=== PATIENT | male | born 1945 | race Caucasian/White ===

== ENCOUNTER 2016-08-24 06:36 | Inpatient (IN) | payer OTHER ==
[2016-08-24 06:53] VITALS: BMI 23.7
--- NOTE | 2016-08-24 07:02 | PDOC ---
History of Present Illness - History of Present Illness Initial Comments: 08/24/16 06:54 This 71-year-old man with metastatic adenocarcinoma pancreas and recurrent pleural effusion presents with increasing shortness of breath over the last 24 hours. The patient is visiting the local area from [place].. Pancreatic carcinoma was diagnosed in November of last year. Since then, he has received chemotherapy and radiation therapy. In late June of this year he developed pleural effusion which was drained. It was found to contain metastatic pancreatic cancer free cells. Since then, he has had 3 drainage procedures for recurrent pleural effusion, most recently on August 21 when he was visiting family in [facility]. Patient states that 2 L were drained off at that time. He did well until yesterday when shortness of breath he was mild, becoming progressively more severe overnight. He has had no fever/chills, increase in his cough or chest pain. Past medical history notable for hypertension/GERD. No history of bleeding disorders; <Lori Perez - Last Filed: 08/24/16 07:11> <Lianna Daniels - Last Filed: 08/24/16 11:36> - General Chief Complaint: Shortness of Breath Stated Complaint: SOB Time Seen by Provider: 08/24/16 06:39 Past History <Lori Perez - Last Filed: 08/24/16 07:11> <Lianna Daniels - Last Filed: 08/24/16 11:36> - Past Medical History Allergies/Adverse Reactions: Allergies Allergy/AdvReac Type Severity Reaction Status Date / Time amlodipine besylate AdvReac Verified 08/24/16 06:53 [From [facility]] Home Medications: Ambulatory Orders Diphenoxylate HCl/Atropine [Lomotil Tablet] 1 each PO QID PRN 08/24/16 Quinapril HCl [Accupril] 10 mg PO DAILY 08/24/16 Tramadol HCl 50 mg PO QID 08/24/16 Review of Systems - Review of Systems Able to Perform ROS?: Yes Comments:: 12 point review of systems is negative except for what is noted in the history of present illness <Lori Perez - Last Filed: 08/24/16 07:11> *Physical Exam - Physical Exam Comments: GENERAL: Adult male, mildly short of breath but speaking in full sentences HEAD: Normal with no signs of trauma. EYES: PERRLA, EOMI, sclera anicteric, conjunctiva clear. ENT: Ears normal, nares patent, oropharynx clear without exudates. Dry mucous membranes. NECK: Normal range of motion, supple without lymphadenopathy, JVD, or masses. LUNGS: Decreased breath sounds bilaterally assisted up. HEART:Regular rate and rhythm, normal S1 and S2 without murmur, rub or gallop. ABDOMEN:.normal bowel sounds No guarding,tenderness or rebound.No masses No distention. EXTREMITIES: Normal range of motion, no edema. No clubbing or cyanosis. No erythema, or tenderness. NEUROLOGICAL: Cranial nerves II through XII grossly intact. Normal speech. No focal neurologic deficits MUSCULOSKELETAL: Back non-tender to palpation, no CVA tenderness SKIN: Warm, Dry, normal turgor, no rashes or lesions noted. <Lori Perez - Last Filed: 08/24/16 07:11> - Vital Signs Last Vital Signs Temp Pulse Resp BP Pulse Ox 97.5 F L 100 H 30 H 138/80 95 08/24/16 06:41 08/24/16 07:30 08/24/16 07:30 08/24/16 07:30 08/24/16 07:30 <Lianna Daniels - Last Filed: 08/24/16 11:36> ED Treatment Course - LABORATORY CBC & Chemistry Diagram: 08/24/16 07:29 08/24/16 07:29 - ADDITIONAL ORDERS Additional order review: Laboratory Results 08/24/16 08/24/16 08/24/16 07:35 07:29 07:29 INR 1.08 Sodium 132 L Potassium 4.1 Chloride 102 Carbon Dioxide 23 Anion Gap 7 L BUN 16 Creatinine 0.8 Creat Clearance w eGFR > 60 Random Glucose 132 H Calcium 8.4 Total Bilirubin 0.8 AST 35 ALT 31 Alkaline Phosphatase 68 Creatine Kinase 73 Total Protein 6.3 L Albumin 2.8 L 08/24/16 07:29 RBC 4.33 MCV 92.0 MCHC 33.5 RDW 14.0 MPV 7.2 L Neutrophils % Y Lymphocytes % Y - RADIOLOGY Radiology Studies Ordered: Category Date Time Status CHEST CTA [CT] Stat CT Scan 08/24/16 09:33 Ordered <Lianna Daniels - Last Filed: 08/24/16 11:36> Progress Note - Progress Note Progress Note: This 71-year-old man with metastatic pancreatic adenocarcinoma and recurrent pleural effusion presents with progressive shortness of breath. He has been receiving therapeutic thoracentesis over the last 6 weeks, most recently 4 days ago. The patient is visiting family here (resides in [place]). He is scheduled to return home to [place] tomorrow. CBC/INR/chemistry profile/cardiac enzymes ordered Oxygen therapy 3 L/minute via nasal cannula started. Chest x-ray: PA and lateral ordered. Case signed out to incoming physician at end of shift <Lori Perez - Last Filed: 08/24/16 07:11> Medical Decision Making - Medical Decision Making 08/24/16 10:05 assumed care of pt at 7 am, awaiting cxr. CXR with pleural effusions bilaterally, atelectasis left base. concern for PE as pt saturating 89% on room air, only moderate effusion. cTA ordered to r/o PE. will likley transfer to [facility] as pt will require pigtail for frequent recurrent malignant effusions. d/w Dr. Bhakta , will see pt. will transfer to [facility]. 08/24/16 11:35 ct positive for PE right upper branch pulm artery. heparin started. Dr bhakta informed, saw pt in ed. and Dr kenney informed update as well. transfer to [facility] telemetry <Lianna Daniels - Last Filed: 08/24/16 11:36> *DC/Admit/Observation/Transfer <Lori Perez - Last Filed: 08/24/16 07:11> - Discharge Dispostion Admit: Yes <Lianna Daniels - Last Filed: 08/24/16 11:36> Diagnosis at time of Disposition: Pleural effusion, Pancreatic cancer, Pulmonary embolism - Discharge Dispostion Condition at time of disposition: Good
[2016-08-24 08:28] LABS: MCH 30.8 pg (25.7-33.7); MCHC 33.5 g/dl (32.0-35.9); MEAN PLT VOLUME 7.2 fl (7.5-11.1); PLATELET COUNT 299 K/MM3 (134-434); WHITE BLOOD COUNT 14.3 K/mm3 (4.0-10.8)
[2016-08-24 08:40] LABS: INR 1.08 (0.82-1.09); PROTHROMBIN TIME (PATIENT) 12.1 SEC (10.2-13.0)
[2016-08-24 08:45] LABS: ALBUMIN 2.8 g/dl (3.5-5.0); ALK PHOS 68 U/L (32-92); ANION GAP 7 (8-16); BILIRUBIN,TOTAL 0.8 mg/dl (0.2-1.0); CALCIUM 8.4 mg/dl (8.4-10.2); CO2 23 mmol/L (22-28); CREATININE 0.8 mg/dl (0.6-1.3); GLUCOSE,RANDOM 132 mg/dl (74-106); SGOT/AST 35 U/L (10-42); SGPT/ALT 31 U/L (10-40); TOT PROT 6.3 g/dl (6.4-8.3)
[2016-08-24 10:23] LABS: TROPONIN I (DFP) 0.1 ng/ml (0.03-0.50)
[2016-08-24] MEDS ORDERED: HEPARIN NA (PORCINE) 5,000 UNITS/ML 1ML VIAL IVPUSH PRN ×7 (11:09→16:43)
[2016-08-24] MEDS: HEPARIN INFUSION - 500 ML IVPB SCH ×4 (11:27→18:30)
[2016-08-24] MEDS ORDERED: HEPARIN INFUSION - 500 ML IVPB SCH (14:15)
--- NOTE | 2016-08-24 16:00 | PN ---
Teaching Attending Note Name of Resident: Alejandro Baez ATTENDING PHYSICIAN STATEMENT I saw and evaluated the patient. I reviewed the resident's note and discussed the case with the resident. I agree with the resident's findings and plan as documented. SUBJECTIVE: 71 M, known metastatic adenocarcinoma of the pancreas to the lungs. Recurrent pleural effusion that has been drained x 4. Recent flight from [place] on August 15. Presented to [facility] ER with increasing SOB. CTA -> Right PE / bilateral pleural effusions. No previous personal / family history of VTE. No fever or chills. Now seen on Telemetry at [facility]. He is awake and alert on 50% VM. He denies overt CP. Breathing does seem a little better at this time. Intake & Output 08/21/16 08/22/16 08/23/16 08/24/16 23:59 23:59 23:59 23:59 Weight 175 lb Last Vital Signs Temp Pulse Resp BP Pulse Ox 98.6 F 119 H 22 180/92 96 08/24/16 14:53 08/24/16 14:53 08/24/16 14:53 08/24/16 14:53 08/24/16 13:09 Active Medications Albuterol/Ipratropium (Duoneb -) 1 amp NEB Q4H PRN PRN Reason: SHORTNESS OF BREATH Heparin Sodium (Porcine) (Heparin -) 1,000 unit IVPUSH PRN PRN PRN Reason: Heparin Heparin Sodium (Porcine) (Heparin -) 5,000 unit IVPUSH PRN PRN PRN Reason: Heparin Heparin Sodium/Dextrose (Heparin Infusion -) 500 mls @ 20 mls/hr IVPB TITR NEDA ; 1,000 UNITS/HR PRN Reason: Protocol - Physical Exam Comments: Constitutional: Yes: Awake and alert, Mildly tachypneic at rest Eyes: Yes: Conjunctiva Clear, EOM Intact HENT: Yes: Atraumatic, Normocephalic Neck: Yes: Supple, Trachea Midline Cardiovascular: Yes: Regular Rate and Rhythm Respiratory: Yes: Bilateral rhonchi, (-) wheeze Gastrointestinal: Yes: Normal Bowel Sounds, Soft ...Rectal Exam: Yes: Deferred Musculoskeletal: Yes: Back Pain Neurological: Yes: Alert, Oriented ...Motor Strength: WNL Psychiatric: Yes: Alert Laboratory Results 07/13/17 07/13/17 07/13/17 07:35 07:29 07:29 INR 1.08 Sodium 132 L Potassium 4.1 Chloride 102 Carbon Dioxide 23 Anion Gap 7 L BUN 16 Creatinine 0.8 Creat Clearance w eGFR > 60 Random Glucose 132 H Calcium 8.4 Total Bilirubin 0.8 AST 35 ALT 31 Alkaline Phosphatase 68 Creatine Kinase 73 Total Protein 6.3 L Albumin 2.8 L 08/24/16 07:29 RBC 4.33 MCV 92.0 MCHC 33.5 RDW 14.0 MPV 7.2 L Neutrophils % Y Lymphocytes % Y IMP: Acute Right PE Metastatic pancreatic adenocarcinoma (to the lungs) Malignant pleural effusion Above history PLAN: Change to Lovenox O2 via VM (?) PluerX placement Will follow Thank you. Dr Luis
--- NOTE | 2016-08-24 17:33 | EKG ---
Test Reason : Blood Pressure : / mmHG Vent. Rate : 101 BPM Atrial Rate : 101 BPM P-R Int : 126 ms QRS Dur : 076 ms QT Int : 352 ms P-R-T Axes : 043 038 044 degrees QTc Int : 456 ms SINUS TACHYCARDIA POSSIBLE LEFT ATRIAL ENLARGEMENT NO PREVIOUS ECGS AVAILABLE Confirmed by MD HU, RENARD ([id number]) on 08/24/2016 5:33:21 PM Referred By: PIA SUGGS Confirmed By:RENARD LUI MD
--- NOTE | 2016-08-24 17:39 | CONSULT ---
Consultation: REQUESTING PROVIDER: CONSULT REQUEST: We have been asked to medically evaluate this patient for worsening dyspnea on exertion/suspected PE. HISTORY OF PRESENT ILLNESS: 71 year old man w/ pmh HTN, HLD, pancreatic Ca and chronic pleural effusions requiring drainage (4x) presents as transfer from [place] with increasing SOB and dyspnea on exertion of one days duration w/ suspicion for possible PE. At baseline, patient has metastatic pancreatic CA to his lung pleura, resulting in chronic pleural effusions that cause significant respiratory symptoms, including exertional dyspnea and SOB, and have required several drainage procedures (4x), most recently three days prior to admission at [facility] in [place]. Yesterday, pt noted a significant increased SOB and exertional dyspnea when walking around the city with his family which seemed to come on suddenly and persisted throughout the evening. His SOB was exacerbating whenever he stood-up and walked around. Pt was in this state when he presented to [facility]. At baseline, pt endorses a chronic cough and fluctuating exercise tolerance, opthopnea and SOB due to pleural effusions, but experience significant relief of symptoms with taps. He denies fever, chills, hemoptysis, palpitations, N/V, abdominal pain, changes in bowel/bladder habits, LE edema, and joint pain. Pt is currently visiting from [place]. No prior VTE or family Hx of thrombophilia or pulmonary disease. He endorse some mild fatigue at baseline and decreased PO intake. He does not require any respiratory support at home and is fully functional in all ADLs. Patient was diagnosed with pancreatic cancer in . Has received 6 rounds of chemo since then and 7 weeks of RT, as recent as May. He received his most recent round of chemo in July. 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 Never smoked or drug use. REVIEW OF SYSTEMS: CONSTITUTIONAL: Absent: fever, chills, diaphoresis, generalized weakness, malaise HEENT: Absent: rhinorrhea, nasal congestion, throat pain, throat swelling, ear pain, eye pain, visual changes CARDIOVASCULAR: Absent: chest pain, syncope, palpitations, irregular heart rate, lightheadedness , peripheral edema RESPIRATORY: Chronic cough, SOB, Dyspnea on exertion Absent: orthopnea, wheezing, hemoptysis GASTROINTESTINAL: Absent: abdominal pain, abdominal distension, nausea, vomiting, diarrhea, constipation, melena, hematochezia GENITOURINARY: Absent: dysuria, frequency, urgency, hesitancy, hematuria MUSCULOSKELETAL: Absent: myalgia, arthralgia, joint swelling, back pain, neck pain SKIN: Absent: rash, itching, pallor HEMATOLOGIC/IMMUNOLOGIC: Absent: easy bleeding, easy bruising, lymphadenopathy NEUROLOGIC: Absent: headache, focal weakness or paresthesias, dizziness, PHYSICAL EXAMINATION Vital Signs - 24 hr 08/24/16 08/24/16 08/24/16 13:09 14:53 15:55 Temperature 98.6 F Pulse Rate 119 H 111 H Respiratory 22 Rate Blood Pressure 180/92 O2 Sat by Pulse 96 91 L Oximetry (%) GENERAL: Awake, alert, and fully oriented, in no acute distress. Well-nourished elderly man sitting down with facemask. HEAD: Normal with no signs of trauma. EYES: Pupils equal, round and reactive to light, extraocular movements intact, sclera anicteric, conjunctiva clear. No lid lag. EARS, NOSE, THROAT: Ears normal, nares patent, oropharynx clear without exudates. Moist mucous membranes. NECK: Normal range of motion, supple without lymphadenopathy, JVD, or masses. LUNGS: Decreased breath sounds BL primarily in lower lung barber. No wheezes, and no crackles. No accessory muscle use. HEART: Regular rate and rhythm, normal S1 and S2 without murmur, rub or gallop. ABDOMEN: Soft, nontender, not distended, normoactive bowel sounds, no guarding, no rebound, no masses. No hepatomegaly or splenomegaly. MUSCULOSKELETAL: Normal range of motion at all joints. No CVA tenderness. UPPER EXTREMITIES: 2+ pulses, warm, well-perfused. No cyanosis. No clubbing. Cap refill <2 seconds. No peripheral edema. LOWER EXTREMITIES: 2+ pulses, warm, well-perfused. No calf tenderness. No peripheral edema. NEUROLOGICAL: Cranial nerves II-XII intact. Normal speech. Gait not evaluated. PSYCHIATRIC: Cooperative. Good eye contact. Appropriate mood and affect. SKIN: Warm, dry, normal turgor, no rashes or lesions noted. Labs: Laboratory Results - last 24 hr 08/24/16 08/24/16 08/24/16 07:29 07:29 07:29 WBC 14.3 H RBC 4.33 Hgb 13.3 Hct 39.8 MCV 92.0 MCH 30.8 MCHC 33.5 RDW 14.0 Plt Count 299 MPV 7.2 L Neutrophils % Y Lymphocytes % Y INR PTT (Actin FS) Sodium 132 L Potassium 4.1 Chloride 102 Carbon Dioxide 23 Anion Gap 7 L BUN 16 Creatinine 0.8 Creat Clearance w eGFR > 60 Random Glucose 132 H Calcium 8.4 Total Bilirubin 0.8 AST 35 ALT 31 Alkaline Phosphatase 68 Creatine Kinase 73 Troponin I 0.10 Total Protein 6.3 L Albumin 2.8 L 08/24/16 08/24/16 07:35 11:45 WBC RBC Hgb Hct MCV MCH MCHC RDW Plt Count MPV Neutrophils % Lymphocytes % INR 1.08 PTT (Actin FS) 25.2 L Sodium Potassium Chloride Carbon Dioxide Anion Gap BUN Creatinine Creat Clearance w eGFR Random Glucose Calcium Total Bilirubin AST ALT Alkaline Phosphatase Creatine Kinase Troponin I Total Protein Albumin EKG (08/24): Sinus Tach. Normal CO and QT. Rate ~100. Peaked Twave in V3. Poor R wave progression in precordial leads. Normal axis. No S1Q3T3. CXR (08/24): Bilateral pleural effusion. R vasc cath. No pneumo or consolidations. CTA (08/24): Suspected PE in RPA. Bilateral pleural effusions with significant airspace disease bilaterally. RLL atelectasis. Active Medications Generic Name Dose Route Start Last Admin Trade Name Nicolas PRN Reason Stop Dose Admin Albuterol/Ipratropium 1 amp 08/24/16 14:41 Duoneb - NEB Q4H PRN SHORTNESS OF BREATH Heparin Sodium (Porcine) 1,000 unit 08/24/16 16:43 Heparin - IVPUSH PRN PRN Heparin Heparin Sodium (Porcine) 5,000 unit 08/24/16 16:43 Heparin - IVPUSH PRN PRN Heparin Heparin Sodium/Dextrose 500 mls @ 20 mls/hr 08/24/16 16:45 Heparin Infusion - IVPB TITR NEDA Protocol 1,000 UNITS/HR ASSESSMENT/PLAN: 71 year old man w/ pmh HTN, HLD, pancreatic Ca and chronic pleural effusions requiring drainage (4x) presents as transfer from [place] with increasing SOB and dyspnea on exertion of one days duration w/ suspicion for possible PE. Physical exam notable for decreased breath sounds bilaterally, no LE edema, with tachycardia and hypertension. Labs notable for elevated WBC (14.3), however patient appears non-infectious. CTA w/ RPA PE and BL pleural effusions. Patient will likely require long-term AC given new PE and drainage of pleural effusion, with possible permanent drainage catheter placement. Continual monitor for infectious symptoms, given possible loculation of effusion on left- side. Problem List: Pulmonary embolism Malignant pleural effusion Pancreatic Ca #Pulmonary embolism - Heparin gtt given drainage procedure tomorrow - Lovenox 80mg q12h after procedure - Monitor sats on venti mask. Titrate to 92%> - LE U/S - Pain control - Will require long-term AC - [employer] [employer] on travel risk Pleural effusions - Scheduled for BL chest tubes tomorrow - Consider possible Pleurex placement - F/u fluid analysis Leukocytosis - Trend fever curve - daily CBCs Sotero Linares MD, PGY1 Discuss plan with attending, Dr. Bhakta Dispo: We will continue to follow the patient. Thank you for this consultative opportunity. Problem List - Problems (1) Pancreatic cancer Code(s): C25.9 - MALIGNANT NEOPLASM OF PANCREAS, UNSPECIFIED (2) Pleural effusion Code(s): J90 - PLEURAL EFFUSION, NOT ELSEWHERE CLASSIFIED (3) Pulmonary embolism Code(s): I26.99 - OTHER PULMONARY EMBOLISM WITHOUT ACUTE COR PULMONALE Visit type - Emergency Visit Emergency Visit: No - New Patient This patient is new to me today: No - Critical Care Critical Care patient: No
[2016-08-24 17:48] LABS: PLATELET ESTIMATE ADEQUATE (NORMAL)
[2016-08-24] MEDS: HEPARIN NA (PORCINE) 5,000 UNITS/ML 1ML VIAL IVPUSH PRN (18:30)
[2016-08-24] MEDS: ALBUTEROL SO4 2.5/IPRATROPIUM 0.5 INH SOL 3 ML VIAL.NEB. NEB PRN (19:09)
[2016-08-24] MEDS: traMADol HCL 50 MG TABLET PO SCH (21:35)
[2016-08-25] MEDS: HEPARIN NA (PORCINE) 5,000 UNITS/ML 1ML VIAL IVPUSH PRN (00:10)
[2016-08-25] MEDS: HEPARIN INFUSION - 500 ML IVPB SCH ×2 (00:11→09:31)
[2016-08-25 07:17] LABS: BASOPHIL 0.2 % (0-2.0); EOSINOPHIL 3.8 % (0-4.5); MCH 30.5 pg (25.7-33.7); MCHC 33.1 g/dl (32.0-35.9); MEAN CELL VOLUME 92.2 fl (80-96); MEAN PLT VOLUME 6.9 fl (7.5-11.1); NEUTROPHILS 82.5 % (42.8-82.8); PLATELET COUNT 287 K/MM3 (134-434); RDW 14.5 % (11.9-15.9)
[2016-08-25 07:53] LABS: ALBUMIN 2.7 g/dl (3.4-5.0); ALK PHOS 83 U/L (45-117); ANION GAP 9 (8-16); BILIRUBIN,TOTAL 0.4 mg/dL (0.2-1.0); CALCIUM 8.7 mg/dL (8.5-10.1); CO2 28 mmol/L (21-32); CREATININE 0.8 mg/dL (0.7-1.3); GLUCOSE,RANDOM 131 mg/dL (74-106); SGOT/AST 28 U/L (15-37); SGPT/ALT 32 U/L (12-78); TOT PROT 6.3 g/dl (6.4-8.2)
[2016-08-25] MEDS ORDERED: PT OWN MED DRAWER 7, Y5N ONE (09:29)
[2016-08-25] MEDS: traMADol HCL 50 MG TABLET PO SCH ×4 (09:32→21:29)
[2016-08-25] MEDS: QUINAPRIL HCL 10 MG TABLET (FP) PO SCH (09:32)
[2016-08-25] MEDS: PANTOPRAZOLE 40 MG TABLET (FP) PO SCH (09:32)
[2016-08-25] MEDS: ALBUTEROL SO4 2.5/IPRATROPIUM 0.5 INH SOL 3 ML VIAL.NEB. NEB PRN ×2 (10:35→15:40)
--- NOTE | 2016-08-25 10:46 | PN ---
Teaching Attending Note Name of Resident: Alejandro Baez ATTENDING PHYSICIAN STATEMENT I saw and evaluated the patient. I reviewed the resident's note and discussed the case with the resident. I agree with the resident's findings and plan as documented. PULMONARY ALERT ,STILL DYSPNEIC ON VM SUBJECTIVE:IMP: Acute Right PE Metastatic pancreatic adenocarcinoma (to the lungs) Malignant pleural effusion PLAN: Change to Lovenox after pigtail insertion O2 via VM echo duplex lower extremities DR MACK Problem List - Problems (1) Pancreatic cancer Code(s): C25.9 - MALIGNANT NEOPLASM OF PANCREAS, UNSPECIFIED (2) Pleural effusion Code(s): J90 - PLEURAL EFFUSION, NOT ELSEWHERE CLASSIFIED (3) Pulmonary embolism Code(s): I26.99 - OTHER PULMONARY EMBOLISM WITHOUT ACUTE COR PULMONALE (4) Acute hypoxemic respiratory failure Code(s): J96.01 - ACUTE RESPIRATORY FAILURE WITH HYPOXIA
--- NOTE | 2016-08-25 14:28 | HP ---
Admitting History and Physical - Smoking History Smoking history: Never smoked Have you smoked in the past 12 months: No Aproximately how many cigarettes per day: 0 - Alcohol/Substance Use Hx Alcohol Use: Yes Home Medications - Allergies Allergies/Adverse Reactions: Allergies Allergy/AdvReac Type Severity Reaction Status Date / Time amlodipine besylate AdvReac Verified 08/24/16 06:53 [From [facility]] - Home Medications Home Medications: Ambulatory Orders Diphenoxylate HCl/Atropine [Lomotil Tablet] 1 each PO QID PRN 08/24/16 Quinapril HCl [Accupril] 10 mg PO DAILY 08/24/16 Tramadol HCl 50 mg PO QID 08/24/16 Physical Examination Vital Signs: Vital Signs Temperature 98 F 08/25/16 09:46 Pulse Rate 106 H 08/25/16 10:35 Respiratory Rate 20 08/25/16 09:46 Blood Pressure 129/92 08/25/16 09:46 O2 Sat by Pulse Oximetry (%) 94 L 08/25/16 10:35 Labs: CBC, BMP 08/25/16 05:35 08/25/16 05:35
--- NOTE | 2016-08-25 18:44 | PN ---
Physical Exam: SUBJECTIVE: Patient seen and examined by me this AM - Complains of continued SOB, dyspnea on exertion. Unable to sleep well overnight - LE dopplers demonstrated BL DVTs - Pt received IVC filter and R sided chest tube for drainage of pleural effusion. Pleural fluid sent for analysis. - Family advised on risk of blood clot. Wishes to return to [place], but informed flight risk due to stasis. - Started on Lovenox for AC. Heparin d/c'ed OBJECTIVE: Vital Signs Period Temp Pulse Resp BP Sys/Fay Pulse Ox Last 24 Hr 97.6 F-98.8 F 90-112 18-30 119-162/74-92 94-99 GENERAL: Awake, alert, and fully oriented, in NAD. Well-nourished elderly man sitting down with facemask. HEAD: Normal with no signs of trauma. LUNGS: Decreased breath sounds BL. No wheezes, and no crackles. No accessory muscle use. HEART: Regular rate and rhythm, normal S1 and S2 without murmur, rub or gallop. ABDOMEN: Soft, nontender, not distended, normoactive bowel sounds, no guarding, no rebound, no masses. No hepatomegaly or splenomegaly. UPPER EXTREMITIES: 2+ pulses, warm, well-perfused. No cyanosis. No clubbing. Cap refill <2 seconds. No peripheral edema. LOWER EXTREMITIES: 2+ pulses, warm, well-perfused. No LE edema bilaterally. Laboratory Results - last 24 hr 08/24/16 08/25/16 08/25/16 23:00 05:35 05:35 WBC 13.0 H RBC 4.30 Hgb 13.1 Hct 39.6 MCV 92.2 MCH 30.5 MCHC 33.1 RDW 14.5 Plt Count 287 MPV 6.9 L Neutrophils % 82.5 Lymphocytes % 6.2 L Monocytes % 7.3 Eosinophils % 3.8 Basophils % 0.2 PTT (Actin FS) 41.6 H Sodium 138 Potassium 4.4 Chloride 101 Carbon Dioxide 28 Anion Gap 9 BUN 14 Creatinine 0.8 Creat Clearance w eGFR > 60 Random Glucose 131 H Calcium 8.7 Total Bilirubin 0.4 AST 28 ALT 32 Alkaline Phosphatase 83 Total Protein 6.3 L Albumin 2.7 L Active Medications Generic Name Dose Route Start Last Admin Trade Name Freq PRN Reason Stop Dose Admin Albuterol/Ipratropium 1 amp 08/24/16 14:41 08/25/16 10:35 Duoneb - NEB 1 amp Q4H PRN Administration SHORTNESS OF BREATH Enoxaparin Sodium 80 mg 08/25/16 22:00 Lovenox - SQ BID NEDA Pantoprazole Sodium 40 mg 08/25/16 10:00 08/25/16 09:32 Protonix - PO 40 mg DAILY NEDA Administration Quinapril HCl 10 mg 08/25/16 10:00 08/25/16 09:32 Accupril - PO 10 mg DAILY NEDA Administration Tramadol HCl 50 mg 08/24/16 22:00 08/25/16 18:28 Ultram - PO 50 mg QID NEDA Administration ASSESSMENT/PLAN: 71 year old man w/ pmh HTN, HLD, pancreatic Ca and chronic pleural effusions requiring drainage (4x) presents as transfer from [place] with increasing SOB and dyspnea on exertion of one days duration w/ suspicion for possible PE. LE dopplers w/ BL DVTs. Pt received IVC filter in IR and CT placement for R pleural effusion. Continual monitor for infectious symptoms, given possible loculation of effusion on left-side. Family wishes to travel home to [place]. Problem List: Pulmonary embolism Malignant pleural effusion Pancreatic Ca Bilateral DVTs #Pulmonary embolism - IVC filter placed - Lovenox 80mg q12h - Monitor sats on venti mask. Titrate to 92%> - LE U/S reviewed - Pain control - Will require long-term AC - Family counseled on travel risk - ECHO to assess RV function #Pleural effusions - R sided CT placed with drainage to gravity. - Consider possible Pleurex placement at later time - F/u fluid analysis #Leukocytosis - Trend fever curve - daily CBCs Sotero Baez MD, PGY1 Plan discussed with attending, Dr. Bhakta Problem List - Problems (1) Pancreatic cancer Code(s): C25.9 - MALIGNANT NEOPLASM OF PANCREAS, UNSPECIFIED (2) Pleural effusion Code(s): J90 - PLEURAL EFFUSION, NOT ELSEWHERE CLASSIFIED (3) Pulmonary embolism Code(s): I26.99 - OTHER PULMONARY EMBOLISM WITHOUT ACUTE COR PULMONALE Visit type - Emergency Visit Emergency Visit: No - New Patient This patient is new to me today: No - Critical Care Critical Care patient: No
[2016-08-25 20:37] LABS: PLEURAL FLUID SOURCE PLEURAL FLUID
[2016-08-25 20:38] LABS: PLEURAL FLUID APPEARANCE CLOUDY; PLEURAL FLUID COLOR DARK YELLOW
[2016-08-25 21:01] LABS: GLUCOSE,PLEURAL FLUID 69.961; TOTAL PROTEIN,PLEURAL FLUID 4.299
[2016-08-25] MEDS: ENOXAPARIN NA (PORCINE) 80 MG/0.8 ML DISP.SYRIN SQ SCH (21:30)
[2016-08-26 06:53] LABS: MCH 30.6 pg (25.7-33.7); MCHC 32.8 g/dl (32.0-35.9); MEAN CELL VOLUME 93.3 fl (80-96); MEAN PLT VOLUME 7.2 fl (7.5-11.1); PLATELET COUNT 269 K/MM3 (134-434); RDW 14.6 % (11.9-15.9); WHITE BLOOD COUNT 14.3 K/mm3 (4.0-10.0)
[2016-08-26] MEDS ORDERED: PT OWN MED DRAWER 7, Y5N ONE (09:11)
--- NOTE | 2016-08-26 09:23 | PN ---
Progress Note, Physician History of Present Illness: pulmonary alert,feeling better,s/p ivc filter,and chest tube insertion R pleural effusion. pleural fluid c/w exudate.Duplex lower ext bilateral DVTs. - Current Medication List Current Medications: Active Medications Albuterol/Ipratropium (Duoneb -) 1 amp NEB Q4H PRN PRN Reason: SHORTNESS OF BREATH Last Admin: 08/25/16 15:40 Dose: 1 amp Enoxaparin Sodium (Lovenox -) 80 mg SQ BID [facility] Last Admin: 08/25/16 21:30 Dose: 80 mg Pantoprazole Sodium (Protonix -) 40 mg PO DAILY [facility] Last Admin: 08/25/16 09:32 Dose: 40 mg Quinapril HCl (Accupril -) 10 mg PO DAILY [facility] Last Admin: 08/25/16 09:32 Dose: 10 mg Tramadol HCl (Ultram -) 50 mg PO QID [facility] Last Admin: 08/25/16 21:29 Dose: 50 mg - Objective Vital Signs: Vital Signs Temperature 98.2 F 08/26/16 08:05 Pulse Rate 102 H 08/26/16 08:05 Respiratory Rate 18 08/26/16 08:05 Blood Pressure 130/70 08/26/16 08:05 O2 Sat by Pulse Oximetry (%) 96 08/25/16 21:00 Constitutional: Yes: Well Nourished, Calm Eyes: Yes: WNL, Other HENT: Yes: WNL Neck: Yes: Supple Cardiovascular: Yes: Regular Rate and Rhythm, S1, S2 Respiratory: Yes: Diminished (improved aeration on R) Gastrointestinal: Yes: Normal Bowel Sounds, Soft Extremities: Yes: WNL Edema: No Labs: CBC, BMP 08/26/16 05:35 08/25/16 05:35 INR, PTT INR 1.08 (0.82-1.09) 08/24/16 07:35 - ....Imaging Chest X-ray: Report Reviewed, Image Reviewed Ultrasound: Report Reviewed, Image Reviewed Problem List - Problems (1) Pancreatic cancer Code(s): C25.9 - MALIGNANT NEOPLASM OF PANCREAS, UNSPECIFIED (2) Pleural effusion Code(s): J90 - PLEURAL EFFUSION, NOT ELSEWHERE CLASSIFIED (3) Pulmonary embolism Code(s): I26.99 - OTHER PULMONARY EMBOLISM WITHOUT ACUTE COR PULMONALE (4) Acute hypoxemic respiratory failure Code(s): J96.01 - ACUTE RESPIRATORY FAILURE WITH HYPOXIA Assessment/Plan IMP Acute Right PE ,Bilateral DVTs S/P IVC Filter Metastatic pancreatic adenocarcinoma with lung and pleural mets Malignant pleural effusion PLAN: Lovenox O2 via VM Drainage left pleural effusion,Pleur-x on Sunday check cytology pleural fluid DR MACK Problem List - Problems (1) Pancreatic cancer Code(s): C25.9 - MALIGNANT NEOPLASM OF PANCREAS, UNSPECIFIED (2) Pleural effusion Code(s): J90 - PLEURAL EFFUSION, NOT ELSEWHERE CLASSIFIED (3) Pulmonary embolism Code(s): I26.99 - OTHER PULMONARY EMBOLISM WITHOUT ACUTE COR PULMONALE (4) Acute hypoxemic respiratory failure Code(s): J96.01 - ACUTE RESPIRATORY FAILURE WITH HYPOXIA
[2016-08-26] MEDS: traMADol HCL 50 MG TABLET PO SCH ×4 (09:36→22:27)
[2016-08-26] MEDS: ENOXAPARIN NA (PORCINE) 80 MG/0.8 ML DISP.SYRIN SQ SCH ×2 (09:37→21:34)
[2016-08-26] MEDS: PANTOPRAZOLE 40 MG TABLET (FP) PO SCH (09:37)
[2016-08-26] MEDS: QUINAPRIL HCL 10 MG TABLET (FP) PO SCH (09:37)
[2016-08-26 09:58] LABS: PLEURAL FLUID LYMPHOCYTES 11 %; PLEURAL FLUID MACROPHAGES 34 %; PLEURAL FLUID NEUTROPHIL 29 %
--- NOTE | 2016-08-26 23:43 | PN ---
Progress Note, Physician - Current Medication List Current Medications: Active Medications Albuterol/Ipratropium (Duoneb -) 1 amp NEB Q4H PRN PRN Reason: SHORTNESS OF BREATH Last Admin: 08/25/16 15:40 Dose: 1 amp Enoxaparin Sodium (Lovenox -) 80 mg SQ BID [facility] Last Admin: 08/26/16 21:34 Dose: 80 mg Pantoprazole Sodium (Protonix -) 40 mg PO DAILY [facility] Last Admin: 08/26/16 09:37 Dose: 40 mg Quinapril HCl (Accupril -) 10 mg PO DAILY [facility] Last Admin: 08/26/16 09:37 Dose: 10 mg Tramadol HCl (Ultram -) 50 mg PO QID [facility] Last Admin: 08/26/16 22:27 Dose: 50 mg - Objective Vital Signs: Vital Signs Temperature 99 F 08/26/16 21:00 Pulse Rate 95 H 08/26/16 21:00 Respiratory Rate 20 08/26/16 21:00 Blood Pressure 117/70 08/26/16 21:00 O2 Sat by Pulse Oximetry (%) 95 08/26/16 21:00 Labs: CBC, BMP 08/26/16 05:35 08/25/16 05:35 INR, PTT INR 1.08 (0.82-1.09) 08/24/16 07:35
[2016-08-27 07:09] LABS: MCH 30.6 pg (25.7-33.7); MCHC 33.3 g/dl (32.0-35.9); MEAN CELL VOLUME 92.1 fl (80-96); MEAN PLT VOLUME 7.2 fl (7.5-11.1); PLATELET COUNT 269 K/MM3 (134-434); RDW 14.7 % (11.9-15.9)
[2016-08-27] MEDS ORDERED: PT OWN MED DRAWER 7, Y5N ONE ×2 (08:57→10:21)
--- NOTE | 2016-08-27 09:10 | PN ---
Progress Note, Physician History of Present Illness: PULMONARY ALERT,FEELING BETTER,LESS DYSPNEIC - Current Medication List Current Medications: Active Medications Albuterol/Ipratropium (Duoneb -) 1 amp NEB Q4H PRN PRN Reason: SHORTNESS OF BREATH Last Admin: 08/25/16 15:40 Dose: 1 amp Enoxaparin Sodium (Lovenox -) 80 mg SQ BID [facility] Last Admin: 08/26/16 21:34 Dose: 80 mg Pantoprazole Sodium (Protonix -) 40 mg PO DAILY [facility] Last Admin: 08/26/16 09:37 Dose: 40 mg Quinapril HCl (Accupril -) 10 mg PO DAILY [facility] Last Admin: 08/26/16 09:37 Dose: 10 mg Tramadol HCl (Ultram -) 50 mg PO QID [facility] Last Admin: 08/26/16 22:27 Dose: 50 mg - Objective Vital Signs: Vital Signs Temperature 98.2 F 08/27/16 08:10 Pulse Rate 94 H 08/27/16 08:10 Respiratory Rate 18 08/27/16 08:10 Blood Pressure 130/70 08/27/16 08:10 O2 Sat by Pulse Oximetry (%) 95 08/26/16 21:00 Constitutional: Yes: Well Nourished, Calm Eyes: Yes: WNL HENT: Yes: WNL Neck: Yes: WNL Cardiovascular: Yes: Regular Rate and Rhythm, S1, S2 Respiratory: Yes: Diminished Gastrointestinal: Yes: Normal Bowel Sounds, Soft Extremities: Yes: WNL Edema: No Labs: CBC, BMP 08/27/16 05:35 08/25/16 05:35 INR, PTT INR 1.08 (0.82-1.09) 08/24/16 07:35 Problem List - Problems (1) Pancreatic cancer Code(s): C25.9 - MALIGNANT NEOPLASM OF PANCREAS, UNSPECIFIED (2) Pleural effusion Code(s): J90 - PLEURAL EFFUSION, NOT ELSEWHERE CLASSIFIED (3) Pulmonary embolism Code(s): I26.99 - OTHER PULMONARY EMBOLISM WITHOUT ACUTE COR PULMONALE (4) Acute hypoxemic respiratory failure Code(s): J96.01 - ACUTE RESPIRATORY FAILURE WITH HYPOXIA Assessment/Plan IMP Acute Right PE ,Bilateral DVTs S/P IVC Filter Metastatic pancreatic adenocarcinoma with lung and pleural mets Malignant pleural effusion PLAN: Hold Lovenox tonight and am O2 via Drainage left pleural effusion,Pleur-x in am check cytology pleural fluid DR MACK Problem List - Problems (1) Pancreatic cancer Code(s): C25.9 - MALIGNANT NEOPLASM OF PANCREAS, UNSPECIFIED (2) Pleural effusion Code(s): J90 - PLEURAL EFFUSION, NOT ELSEWHERE CLASSIFIED (3) Pulmonary embolism Code(s): I26.99 - OTHER PULMONARY EMBOLISM WITHOUT ACUTE COR PULMONALE (4) Acute hypoxemic respiratory failure Code(s): J96.01 - ACUTE RESPIRATORY FAILURE WITH HYPOXIA
[2016-08-27] MEDS: ENOXAPARIN NA (PORCINE) 80 MG/0.8 ML DISP.SYRIN SQ SCH (09:24)
[2016-08-27] MEDS: PANTOPRAZOLE 40 MG TABLET (FP) PO SCH (09:24)
[2016-08-27] MEDS: traMADol HCL 50 MG TABLET PO SCH ×4 (09:24→21:47)
[2016-08-27] MEDS: QUINAPRIL HCL 10 MG TABLET (FP) PO SCH (10:25)
--- NOTE | 2016-08-27 22:30 | PN ---
Progress Note, Physician History of Present Illness: Pt feels his breathing is improved - Current Medication List Current Medications: Active Medications Albuterol/Ipratropium (Duoneb -) 1 amp NEB Q4H PRN PRN Reason: SHORTNESS OF BREATH Last Admin: 08/25/16 15:40 Dose: 1 amp Enoxaparin Sodium (Lovenox -) 80 mg SQ BID [facility] Last Admin: 08/27/16 09:24 Dose: 80 mg Pantoprazole Sodium (Protonix -) 40 mg PO DAILY [facility] Last Admin: 08/27/16 09:24 Dose: 40 mg Quinapril HCl (Accupril -) 10 mg PO DAILY [facility] Last Admin: 08/27/16 10:25 Dose: 10 mg Tramadol HCl (Ultram -) 50 mg PO QID [facility] Last Admin: 08/27/16 21:47 Dose: 50 mg - Objective Vital Signs: Vital Signs Temperature 98.2 F 08/27/16 17:43 Pulse Rate 92 H 08/27/16 17:43 Respiratory Rate 20 08/27/16 20:49 Blood Pressure 136/82 08/27/16 17:43 O2 Sat by Pulse Oximetry (%) 95 08/27/16 20:49 Eyes: Yes: WNL HENT: Yes: WNL Neck: Yes: WNL, Supple Cardiovascular: Yes: WNL, Regular Rate and Rhythm Respiratory: Yes: Other (Rt sided chest tube) Gastrointestinal: Yes: WNL, Normal Bowel Sounds, Soft Labs: CBC, BMP 08/27/16 05:35 08/25/16 05:35 INR, PTT INR 1.08 (0.82-1.09) 08/24/16 07:35 Problem List - Problems (1) Pleural effusion Assessment/Plan: S/P rt chest tube placement wc is draining Pt to have lt pleurx placement in am Follow cytology Probable malignant effusion Code(s): J90 - PLEURAL EFFUSION, NOT ELSEWHERE CLASSIFIED (2) Pulmonary embolism Assessment/Plan: Cont lovenox/nebulizers Code(s): I26.99 - OTHER PULMONARY EMBOLISM WITHOUT ACUTE COR PULMONALE (3) Acute hypoxemic respiratory failure Assessment/Plan: Multifactorial Due to pleural effusion/PE Code(s): J96.01 - ACUTE RESPIRATORY FAILURE WITH HYPOXIA (4) DVT (deep venous thrombosis) Assessment/Plan: S/P IVC filter placement Code(s): I82.409 - ACUTE EMBOLISM AND THOMBOS UNSP DEEP VN UNSP LOWER EXTREMITY (5) Pancreatic cancer Code(s): C25.9 - MALIGNANT NEOPLASM OF PANCREAS, UNSPECIFIED (6) HTN (hypertension) Code(s): I10 - ESSENTIAL (PRIMARY) HYPERTENSION
[2016-08-28 07:08] LABS: BASOPHIL 0.2 % (0-2.0); EOSINOPHIL 4.8 % (0-4.5); MCH 30.2 pg (25.7-33.7); MCHC 32.6 g/dl (32.0-35.9); MEAN CELL VOLUME 92.5 fl (80-96); MEAN PLT VOLUME 7.1 fl (7.5-11.1); NEUTROPHILS 80.9 % (42.8-82.8); PLATELET COUNT 292 K/MM3 (134-434); RDW 14.8 % (11.9-15.9); WHITE BLOOD COUNT 12.8 K/mm3 (4.0-10.0)
[2016-08-28 07:36] LABS: ALBUMIN 2.3 g/dl (3.4-5.0); ANION GAP 8 (8-16); CALCIUM 8.3 mg/dL (8.5-10.1); CO2 29 mmol/L (21-32); GLUCOSE,RANDOM 109 mg/dL (74-106)
[2016-08-28 07:41] LABS: ALK PHOS 80 U/L (45-117); BILIRUBIN,TOTAL 0.6 mg/dL (0.2-1.0); CREATININE 0.7 mg/dL (0.7-1.3); SGOT/AST 28 U/L (15-37); SGPT/ALT 33 U/L (12-78); TOT PROT 5.8 g/dl (6.4-8.2)
[2016-08-28] MEDS: QUINAPRIL HCL 10 MG TABLET (FP) PO SCH (09:21)
[2016-08-28] MEDS: traMADol HCL 50 MG TABLET PO SCH ×4 (09:21→22:41)
[2016-08-28] MEDS: PANTOPRAZOLE 40 MG TABLET (FP) PO SCH (09:22)
--- NOTE | 2016-08-28 13:03 | PN ---
Progress Note, Physician History of Present Illness: pulmonary alert,feeling better, s/p pleur-x insertion. chest x-ray post procedure ?ptx vs trapped lung - Current Medication List Current Medications: Active Medications Albuterol/Ipratropium (Duoneb -) 1 amp NEB Q4H PRN PRN Reason: SHORTNESS OF BREATH Last Admin: 08/25/16 15:40 Dose: 1 amp Enoxaparin Sodium (Lovenox -) 80 mg SQ BID [facility] Last Admin: 08/27/16 09:24 Dose: 80 mg Pantoprazole Sodium (Protonix -) 40 mg PO DAILY [facility] Last Admin: 08/28/16 09:22 Dose: 40 mg Quinapril HCl (Accupril -) 10 mg PO DAILY [facility] Last Admin: 08/28/16 09:21 Dose: 10 mg Tramadol HCl (Ultram -) 50 mg PO QID [facility] Last Admin: 08/28/16 09:21 Dose: 50 mg - Objective Vital Signs: Vital Signs Temperature 98.5 F 08/28/16 10:58 Pulse Rate 95 H 08/28/16 10:58 Respiratory Rate 20 08/28/16 10:58 Blood Pressure 125/73 08/28/16 10:58 O2 Sat by Pulse Oximetry (%) 96 08/28/16 09:00 Constitutional: Yes: Well Nourished, Calm Eyes: Yes: WNL HENT: Yes: WNL Neck: Yes: WNL Cardiovascular: Yes: Regular Rate and Rhythm, S1, S2 Respiratory: Yes: Diminished Gastrointestinal: Yes: Normal Bowel Sounds, Soft Extremities: Yes: WNL Edema: No Labs: CBC, BMP 08/28/16 05:35 08/28/16 05:35 INR, PTT INR 1.08 (0.82-1.09) 08/24/16 07:35 Problem List - Problems (1) Pancreatic cancer Code(s): C25.9 - MALIGNANT NEOPLASM OF PANCREAS, UNSPECIFIED (2) Pleural effusion Code(s): J90 - PLEURAL EFFUSION, NOT ELSEWHERE CLASSIFIED (3) Pulmonary embolism Code(s): I26.99 - OTHER PULMONARY EMBOLISM WITHOUT ACUTE COR PULMONALE (4) Acute hypoxemic respiratory failure Code(s): J96.01 - ACUTE RESPIRATORY FAILURE WITH HYPOXIA Assessment/Plan IMP Acute Right PE ,Bilateral DVTs S/P IVC Filter Metastatic pancreatic adenocarcinoma with lung and pleural mets Malignant pleural effusion ? Left Ptx PLAN: Resume Lovenox tonight O2 via VM check cytology pleural fluid f/u chest x-ray DR MACK Problem List - Problems (1) Pancreatic cancer Code(s): C25.9 - MALIGNANT NEOPLASM OF PANCREAS, UNSPECIFIED (2) Pleural effusion Code(s): J90 - PLEURAL EFFUSION, NOT ELSEWHERE CLASSIFIED (3) Pulmonary embolism Code(s): I26.99 - OTHER PULMONARY EMBOLISM WITHOUT ACUTE COR PULMONALE (4) Acute hypoxemic respiratory failure Code(s): J96.01 - ACUTE RESPIRATORY FAILURE WITH HYPOXIA
--- NOTE | 2016-08-28 21:55 | PN ---
Progress Note, Physician - Current Medication List Current Medications: Active Medications Albuterol/Ipratropium (Duoneb -) 1 amp NEB Q4H PRN PRN Reason: SHORTNESS OF BREATH Last Admin: 08/25/16 15:40 Dose: 1 amp Docusate Sodium (Colace -) 300 mg PO HS [facility] Enoxaparin Sodium (Lovenox -) 80 mg SQ BID [facility] Last Admin: 08/27/16 09:24 Dose: 80 mg Pantoprazole Sodium (Protonix -) 40 mg PO DAILY [facility] Last Admin: 08/28/16 09:22 Dose: 40 mg Quinapril HCl (Accupril -) 10 mg PO DAILY [facility] Last Admin: 08/28/16 09:21 Dose: 10 mg Tramadol HCl (Ultram -) 50 mg PO QID [facility] Last Admin: 08/28/16 17:39 Dose: Not Given - Objective Vital Signs: Vital Signs Temperature 98.6 F 08/28/16 20:00 Pulse Rate 86 08/28/16 20:00 Respiratory Rate 20 08/28/16 20:29 Blood Pressure 128/73 08/28/16 20:00 O2 Sat by Pulse Oximetry (%) 95 08/28/16 20:29 Labs: CBC, BMP 08/28/16 05:35 08/28/16 05:35 INR, PTT INR 1.08 (0.82-1.09) 08/24/16 07:35 Problem List - Problems (1) Pleural effusion Code(s): J90 - PLEURAL EFFUSION, NOT ELSEWHERE CLASSIFIED (2) Pulmonary embolism Code(s): I26.99 - OTHER PULMONARY EMBOLISM WITHOUT ACUTE COR PULMONALE (3) Acute hypoxemic respiratory failure Code(s): J96.01 - ACUTE RESPIRATORY FAILURE WITH HYPOXIA (4) DVT (deep venous thrombosis) Code(s): I82.409 - ACUTE EMBOLISM AND THOMBOS UNSP DEEP VN UNSP LOWER EXTREMITY (5) Pancreatic cancer Code(s): C25.9 - MALIGNANT NEOPLASM OF PANCREAS, UNSPECIFIED (6) HTN (hypertension) Code(s): I10 - ESSENTIAL (PRIMARY) HYPERTENSION
[2016-08-28] MEDS: DOCUSATE SODIUM 100 MG CAPSULE (FP) PO SCH (22:42)
[2016-08-28] MEDS: ENOXAPARIN NA (PORCINE) 80 MG/0.8 ML DISP.SYRIN SQ SCH (22:44)
--- NOTE | 2016-08-29 03:27 | HOSP ---
Physical Examination Vital Signs: Vital Signs Temperature 98.6 F 08/28/16 20:00 Pulse Rate 80 08/28/16 22:56 Respiratory Rate 20 08/28/16 22:56 Blood Pressure 129/72 08/28/16 22:56 O2 Sat by Pulse Oximetry (%) 95 08/28/16 20:29 Labs: CBC, BMP 08/28/16 05:35 08/28/16 05:35 Hospitalist Encounter Assessment: CBC, BMP 08/28/16 05:35 08/28/16 05:35 Initial Vital Signs Temp Pulse Resp BP Pulse Ox 97.5 F L 105 H 30 H 140/85 89 L 08/24/16 06:41 08/24/16 06:41 08/24/16 06:41 08/24/16 06:41 08/24/16 06:41 I was paged by nurse to check on mentioned patient due to Chest pain. Patient complained of mid sternal chest pain non radiating, 8/10 in severity, increased when he lay down on bed. Vitals : BP 132/76 , HR 82, temp 97, O2 99 % room air. Head : NC/AT Neck: No JVD Chest : Clear to ausculation B/L , no ronchi, no rales.Chest tube in the left side Heart: Normal S1 , S2 no M/R/G Abdomen : soft non distened, non tender, + bowel sounds. EXT: no edema EKG: normal sinus rhythm Chest X ray shows pneumothx mild on the left side , small right pleural effusion with mild pulmonary edema. Trop was ordered to R/O ACS. continue monitor Visit type - Emergency Visit Emergency Visit: No - New Patient This patient is new to me today: No - Critical Care Critical Care patient: No
[2016-08-29] MEDS: traMADol HCL 50 MG TABLET PO SCH ×5 (04:00→22:19)
[2016-08-29 08:19] LABS: BASOPHIL 0.1 % (0-2.0); EOSINOPHIL 2.5 % (0-4.5); MCH 30.4 pg (25.7-33.7); MCHC 33.1 g/dl (32.0-35.9); MEAN PLT VOLUME 7.1 fl (7.5-11.1); NEUTROPHILS 85.2 % (42.8-82.8); PLATELET COUNT 273 K/MM3 (134-434); RDW 15.1 % (11.9-15.9); WHITE BLOOD COUNT 14.2 K/mm3 (4.0-10.0)
[2016-08-29 08:38] LABS: ALBUMIN 2.4 g/dl (3.4-5.0); ANION GAP 7 (8-16); CALCIUM 8.4 mg/dL (8.5-10.1); CO2 31 mmol/L (21-32); GLUCOSE,RANDOM 135 mg/dL (74-106)
[2016-08-29 08:41] LABS: ALK PHOS 87 U/L (45-117); BILIRUBIN,TOTAL 0.7 mg/dL (0.2-1.0); CREATININE 0.7 mg/dL (0.7-1.3); SGOT/AST 30 U/L (15-37); SGPT/ALT 36 U/L (12-78)
[2016-08-29] MEDS: ENOXAPARIN NA (PORCINE) 80 MG/0.8 ML DISP.SYRIN SQ SCH ×2 (09:15→22:18)
[2016-08-29] MEDS: PANTOPRAZOLE 40 MG TABLET (FP) PO SCH (09:16)
[2016-08-29] MEDS: QUINAPRIL HCL 10 MG TABLET (FP) PO SCH (09:20)
--- NOTE | 2016-08-29 10:48 | PN ---
Progress Note, Physician History of Present Illness: PULMONARY ALERT,FEELING BETTER,-RESP DISTRESS - Current Medication List Current Medications: Active Medications Albuterol/Ipratropium (Duoneb -) 1 amp NEB Q4H PRN PRN Reason: SHORTNESS OF BREATH Last Admin: 08/25/16 15:40 Dose: 1 amp Docusate Sodium (Colace -) 300 mg PO HS [facility] Last Admin: 08/28/16 22:42 Dose: 300 mg Enoxaparin Sodium (Lovenox -) 80 mg SQ BID [facility] Last Admin: 08/29/16 09:15 Dose: 80 mg Pantoprazole Sodium (Protonix -) 40 mg PO DAILY [facility] Last Admin: 08/29/16 09:16 Dose: 40 mg Quinapril HCl (Accupril -) 10 mg PO DAILY [facility] Last Admin: 08/29/16 09:20 Dose: 10 mg Tramadol HCl (Ultram -) 50 mg PO QID [facility] Last Admin: 08/29/16 09:16 Dose: 50 mg - Objective Vital Signs: Vital Signs Temperature 97.5 F L 08/29/16 09:49 Pulse Rate 104 H 08/29/16 10:05 Respiratory Rate 18 08/29/16 09:49 Blood Pressure 154/82 08/29/16 09:49 O2 Sat by Pulse Oximetry (%) 96 08/29/16 10:05 Constitutional: Yes: Well Nourished, Calm Eyes: Yes: WNL HENT: Yes: WNL Neck: Yes: WNL Cardiovascular: Yes: Regular Rate and Rhythm, S1, S2 Respiratory: Yes: CTA Bilaterally Gastrointestinal: Yes: WNL Extremities: Yes: WNL Edema: No Labs: CBC, BMP 08/29/16 05:55 08/29/16 05:55 INR, PTT INR 1.08 (0.82-1.09) 08/24/16 07:35 - ....Imaging Chest X-ray: Report Reviewed, Image Reviewed (LEFT PTX) Problem List - Problems (1) Pancreatic cancer Code(s): C25.9 - MALIGNANT NEOPLASM OF PANCREAS, UNSPECIFIED (2) Pleural effusion Code(s): J90 - PLEURAL EFFUSION, NOT ELSEWHERE CLASSIFIED (3) Pulmonary embolism Code(s): I26.99 - OTHER PULMONARY EMBOLISM WITHOUT ACUTE COR PULMONALE (4) Acute hypoxemic respiratory failure Code(s): J96.01 - ACUTE RESPIRATORY FAILURE WITH HYPOXIA Assessment/Plan IMP Acute Right PE ,Bilateral DVTs S/P IVC Filter Metastatic pancreatic adenocarcinoma with lung and pleural mets Malignant pleural effusion ? Left Ptx PLAN: Resume Lovenox tonight O2 check cytology pleural fluid f/u chest x-ray chest tube to suction DR MACK Problem List - Problems (1) Pancreatic cancer Code(s): C25.9 - MALIGNANT NEOPLASM OF PANCREAS, UNSPECIFIED (2) Pleural effusion Code(s): J90 - PLEURAL EFFUSION, NOT ELSEWHERE CLASSIFIED (3) Pulmonary embolism Code(s): I26.99 - OTHER PULMONARY EMBOLISM WITHOUT ACUTE COR PULMONALE (4) Acute hypoxemic respiratory failure Code(s): J96.01 - ACUTE RESPIRATORY FAILURE WITH HYPOXIA
--- NOTE | 2016-08-29 16:20 | EKG ---
Test Reason : Blood Pressure : / mmHG Vent. Rate : 085 BPM Atrial Rate : 085 BPM P-R Int : 134 ms QRS Dur : 076 ms QT Int : 360 ms P-R-T Axes : 063 043 044 degrees QTc Int : 428 ms NORMAL SINUS RHYTHM POSSIBLE LEFT ATRIAL ENLARGEMENT BORDERLINE ECG WHEN COMPARED WITH ECG OF 24-AUG-2016 07:18, NO SIGNIFICANT CHANGE WAS FOUND Confirmed by MARCOS GUO MD ([id number]) on 08/29/2016 4:20:11 PM Referred By: Confirmed By:MARCOS GUO MD
[2016-08-29] MEDS: DOCUSATE SODIUM 100 MG CAPSULE (FP) PO SCH (22:19)
--- NOTE | 2016-08-29 23:41 | PN ---
Progress Note, Physician - Current Medication List Current Medications: Active Medications Docusate Sodium (Colace -) 300 mg PO HS [facility] Last Admin: 08/29/16 22:19 Dose: 300 mg Enoxaparin Sodium (Lovenox -) 80 mg SQ BID [facility] Last Admin: 08/29/16 22:18 Dose: 80 mg Pantoprazole Sodium (Protonix -) 40 mg PO DAILY [facility] Last Admin: 08/29/16 09:16 Dose: 40 mg Quinapril HCl (Accupril -) 10 mg PO DAILY [facility] Last Admin: 08/29/16 09:20 Dose: 10 mg Tramadol HCl (Ultram -) 50 mg PO QID [facility] Last Admin: 08/29/16 22:19 Dose: 50 mg - Objective Vital Signs: Vital Signs Temperature 98.2 F 08/29/16 20:23 Pulse Rate 97 H 08/29/16 20:23 Respiratory Rate 20 08/29/16 20:23 Blood Pressure 120/75 08/29/16 20:23 O2 Sat by Pulse Oximetry (%) 98 08/29/16 20:23 Labs: CBC, BMP 08/29/16 05:55 08/29/16 05:55 INR, PTT INR 1.08 (0.82-1.09) 08/24/16 07:35 Problem List - Problems (1) Pleural effusion Code(s): J90 - PLEURAL EFFUSION, NOT ELSEWHERE CLASSIFIED (2) Pulmonary embolism Code(s): I26.99 - OTHER PULMONARY EMBOLISM WITHOUT ACUTE COR PULMONALE (3) Acute hypoxemic respiratory failure Code(s): J96.01 - ACUTE RESPIRATORY FAILURE WITH HYPOXIA (4) DVT (deep venous thrombosis) Code(s): I82.409 - ACUTE EMBOLISM AND THOMBOS UNSP DEEP VN UNSP LOWER EXTREMITY (5) Pancreatic cancer Code(s): C25.9 - MALIGNANT NEOPLASM OF PANCREAS, UNSPECIFIED (6) HTN (hypertension) Code(s): I10 - ESSENTIAL (PRIMARY) HYPERTENSION
[2016-08-30 07:25] LABS: BASOPHIL 0.3 % (0-2.0); EOSINOPHIL 5.7 % (0-4.5); MCHC 32.6 g/dl (32.0-35.9); MEAN CELL VOLUME 91.9 fl (80-96); MEAN PLT VOLUME 7.5 fl (7.5-11.1); PLATELET COUNT 351 K/MM3 (134-434); RDW 14.8 % (11.9-15.9); WHITE BLOOD COUNT 13.4 K/mm3 (4.0-10.0)
[2016-08-30 07:58] LABS: ALBUMIN 2.4 g/dl (3.4-5.0); ALK PHOS 91 U/L (45-117); ANION GAP 8 (8-16); BILIRUBIN,TOTAL 0.5 mg/dL (0.2-1.0); CALCIUM 8.5 mg/dL (8.5-10.1); CO2 29 mmol/L (21-32); CREATININE 0.8 mg/dL (0.7-1.3); GLUCOSE,RANDOM 111 mg/dL (74-106); SGOT/AST 32 U/L (15-37); SGPT/ALT 41 U/L (12-78)
[2016-08-30] MEDS: PANTOPRAZOLE 40 MG TABLET (FP) PO SCH (09:58)
[2016-08-30] MEDS: traMADol HCL 50 MG TABLET PO SCH ×4 (09:58→21:52)
[2016-08-30] MEDS: QUINAPRIL HCL 10 MG TABLET (FP) PO SCH (09:58)
[2016-08-30] MEDS: ENOXAPARIN NA (PORCINE) 80 MG/0.8 ML DISP.SYRIN SQ SCH (10:39)
--- NOTE | 2016-08-30 12:06 | PN ---
Progress Note, Physician History of Present Illness: PULMONARY ALERT,NO COMPLAINTS,-CP,-SOB.PLEURAL FLUID CYTOLOGY R PLEURAL EFFUSION + ADENO CA - Current Medication List Current Medications: Active Medications Docusate Sodium (Colace -) 300 mg PO HS [facility] Last Admin: 08/29/16 22:19 Dose: 300 mg Enoxaparin Sodium (Lovenox -) 80 mg SQ BID [facility] Last Admin: 08/30/16 10:39 Dose: Not Given Pantoprazole Sodium (Protonix -) 40 mg PO DAILY [facility] Last Admin: 08/30/16 09:58 Dose: 40 mg Quinapril HCl (Accupril -) 10 mg PO DAILY [facility] Last Admin: 08/30/16 09:58 Dose: 10 mg Tramadol HCl (Ultram -) 50 mg PO QID [facility] Last Admin: 08/30/16 09:58 Dose: 50 mg - Objective Vital Signs: Vital Signs Temperature 98.1 F 08/30/16 08:04 Pulse Rate 72 08/30/16 10:10 Respiratory Rate 20 08/30/16 08:04 Blood Pressure 140/71 08/30/16 08:04 O2 Sat by Pulse Oximetry (%) 98 08/30/16 10:10 Constitutional: Yes: Well Nourished, Calm Eyes: Yes: WNL HENT: Yes: WNL Neck: Yes: WNL Cardiovascular: Yes: Regular Rate and Rhythm, S1, S2 Respiratory: Yes: CTA Bilaterally Gastrointestinal: Yes: Normal Bowel Sounds, Soft Extremities: Yes: WNL Edema: No Labs: CBC, BMP 08/30/16 05:35 08/30/16 05:35 INR, PTT INR 1.08 (0.82-1.09) 08/24/16 07:35 - ....Imaging Chest X-ray: Report Reviewed, Image Reviewed Problem List - Problems (1) Pancreatic cancer Code(s): C25.9 - MALIGNANT NEOPLASM OF PANCREAS, UNSPECIFIED (2) Pleural effusion Code(s): J90 - PLEURAL EFFUSION, NOT ELSEWHERE CLASSIFIED (3) Pulmonary embolism Code(s): I26.99 - OTHER PULMONARY EMBOLISM WITHOUT ACUTE COR PULMONALE (4) Acute hypoxemic respiratory failure Code(s): J96.01 - ACUTE RESPIRATORY FAILURE WITH HYPOXIA Assessment/Plan IMP Acute Right PE ,Bilateral DVTs S/P IVC Filter Metastatic pancreatic adenocarcinoma with lung and pleural mets Malignant pleural effusion ? Left Ptx PLAN: Lovenox intermodal dispatcher O2 f/u chest x-ray chest tube to suction pleur-x in am DR MACK Problem List - Problems (1) Pancreatic cancer Code(s): C25.9 - MALIGNANT NEOPLASM OF PANCREAS, UNSPECIFIED (2) Pleural effusion Code(s): J90 - PLEURAL EFFUSION, NOT ELSEWHERE CLASSIFIED (3) Pulmonary embolism Code(s): I26.99 - OTHER PULMONARY EMBOLISM WITHOUT ACUTE COR PULMONALE (4) Acute hypoxemic respiratory failure Code(s): J96.01 - ACUTE RESPIRATORY FAILURE WITH HYPOXIA
--- NOTE | 2016-08-30 17:47 | PATH ---
Cytology Non-Gynecological Report Patient Name: BROOKS CORTEZ Med. Rec. #: [id number] /Age/Gender: 1945 (Age: 71) / M Account: [id number] Location: [facility] R Taken: 08/25/2016 Received: 08/28/2016 Reported: 08/30/2016 Physicians: Annie Miles M.D. Joseph Brill, M.D. Specimen(s) Received PLEURAL FLUID Clinical History Pancreatic cancer, pleural effusion, rule out mets Final Diagnosis PLEURAL FLUID, THORACENTESIS: SATISFACTORY FOR EVALUATION. POSITIVE FOR MALIGNANT CELLS. INVOLVEMENT BY ADENOCARCINOMA (SEE COMMENT). Comment: History of pancreatic cancer is noted. Refer to [id number] for the immunohistochemical stains results. Electronically Signed Antonio Nath M.D. Gross Description Received is 50 cc of peach colored fluid fresh. Outside four slides and one cell block are made.
--- NOTE | 2016-08-30 17:48 | PATH ---
Cytology Non-Gynecological Report Patient Name: BROOKS CORTEZ Med. Rec. #: [id number] /Age/Gender: 1945 (Age: 71) / M Account: [id number] Location: [facility] R Taken: 08/28/2016 Received: 08/28/2016 Reported: 08/30/2016 Physicians: Jake Baron M.D. Specimen(s) Received PLEURAL FLUID Clinical History Pancreatic cancer, pleural effusion Final Diagnosis PLEURAL FLUID, THORACENTESIS: SATISFACTORY FOR EVALUATION. POSITIVE FOR MALIGNANT CELLS. INVOLVEMENT BY METASTATIC ADENOCARCINOMA (SEE COMMENT). Comment: History of pancreatic cancer is noted. Immunohistochemical stains performed at [place], [place] ([id number]) and interpreted at [facility] show the following: The tumor cells in the effusion are positive for CK&, CA19.8YmxOB3/KEVIN and MOC31 immunostain; CK20 shows focal reactivity. The tumor cells are negative for calretinin, CDX2, and TTF1 immunostains. 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 The case was preliminary discussed with Dr. Bhakta on 08/30/16. Also refer to [id number]. Electronically Signed Antonio Nath M.D. Gross Description Received is 50 cc of bloody fluid fresh. One cytofunnel slide and one cell block are made.
--- NOTE | 2016-08-30 19:13 | PN ---
Progress Note, Physician - Current Medication List Current Medications: Active Medications Docusate Sodium (Colace -) 300 mg PO HS [facility] Last Admin: 08/29/16 22:19 Dose: 300 mg Pantoprazole Sodium (Protonix -) 40 mg PO DAILY [facility] Last Admin: 08/30/16 09:58 Dose: 40 mg Quinapril HCl (Accupril -) 10 mg PO DAILY [facility] Last Admin: 08/30/16 09:58 Dose: 10 mg Tramadol HCl (Ultram -) 50 mg PO QID [facility] Last Admin: 08/30/16 18:00 Dose: Not Given - Objective Vital Signs: Vital Signs Temperature 98.0 F 08/30/16 17:00 Pulse Rate 91 H 08/30/16 17:00 Respiratory Rate 18 08/30/16 17:00 Blood Pressure 133/80 08/30/16 17:00 O2 Sat by Pulse Oximetry (%) 98 08/30/16 10:10 Labs: CBC, BMP 08/30/16 05:35 08/30/16 05:35 INR, PTT INR 1.08 (0.82-1.09) 08/24/16 07:35 Problem List - Problems (1) Pleural effusion Code(s): J90 - PLEURAL EFFUSION, NOT ELSEWHERE CLASSIFIED (2) Pulmonary embolism Code(s): I26.99 - OTHER PULMONARY EMBOLISM WITHOUT ACUTE COR PULMONALE (3) Acute hypoxemic respiratory failure Code(s): J96.01 - ACUTE RESPIRATORY FAILURE WITH HYPOXIA (4) DVT (deep venous thrombosis) Code(s): I82.409 - ACUTE EMBOLISM AND THOMBOS UNSP DEEP VN UNSP LOWER EXTREMITY (5) Pancreatic cancer Code(s): C25.9 - MALIGNANT NEOPLASM OF PANCREAS, UNSPECIFIED (6) HTN (hypertension) Code(s): I10 - ESSENTIAL (PRIMARY) HYPERTENSION
[2016-08-30] MEDS: DOCUSATE SODIUM 100 MG CAPSULE (FP) PO SCH (21:52)
[2016-08-31] MEDS ORDERED: PT OWN MED DRAWER 7, Y5N ONE (09:06)
[2016-08-31] MEDS: PANTOPRAZOLE 40 MG TABLET (FP) PO SCH (09:19)
[2016-08-31] MEDS: QUINAPRIL HCL 10 MG TABLET (FP) PO SCH (09:19)
[2016-08-31] MEDS: traMADol HCL 50 MG TABLET PO PRN ×2 (09:19→22:26)
--- NOTE | 2016-08-31 09:48 | PN ---
Progress Note (short form) - Note Progress Note: Thoracic Surgery - Dr. Denton Called to see 71-year-old man with metastatic adenocarcinoma pancreas and recurrent pleural effusion. In late June of this year he developed pleural effusion which was drained. Pleural analysis identified metastatic pancreatic cancer free cells. Since then, he has had 3 thoracentesis for recurrent pleural effusion, most recently on August 21, 2016 --> 2L drained. Because patient was SOB, he had a CTA which confirmed RIGHT PE and b/l pleural effusions R>L. He subsequently had a right pigtail placed followed by a left which was changed to a Pleurex cath on 08/28. Patient has a stable left ptx most likely due to trapped lung. He is resting comfortably without complaint. Denies n/v/f/c, CP or SOB. Last Vital Signs Temp Pulse Resp BP Pulse Ox 97.7 F 97 H 18 128/73 98 08/31/16 07:43 08/31/16 07:43 08/31/16 07:54 08/31/16 07:43 08/31/16 07:54 CBC, BMP 08/30/16 05:35 08/30/16 05:35 Gen: alert. nad Pulm: Left pleurex to suction (serous drainage), no air leak. Right pigtail in place, no air leak Problem List - Problems (1) Pleural effusion Assessment/Plan: Spoke with IR/Dr. Lee --> he plans on changing right pigtail to a PLEUREX CATH 08/31/16. After reviewing CT and labs with my attending, patient has a stable left ptx ( trapped lung). No indication for surgery. Best treatment is the pleurex cath for effusion management. Continue medical management. On therapeutic dose of Lovenox. Above discussed with Dr. Denton and agrees. Code(s): J90 - PLEURAL EFFUSION, NOT ELSEWHERE CLASSIFIED (2) Pulmonary embolism Code(s): I26.99 - OTHER PULMONARY EMBOLISM WITHOUT ACUTE COR PULMONALE (3) DVT (deep venous thrombosis) Code(s): I82.409 - ACUTE EMBOLISM AND THOMBOS UNSP DEEP VN UNSP LOWER EXTREMITY (4) Pancreatic cancer Code(s): C25.9 - MALIGNANT NEOPLASM OF PANCREAS, UNSPECIFIED Qualifiers: Pancreatic malignancy location: other parts of pancreas Qualified Code(s): C25.7 - Malignant neoplasm of other parts of pancreas
--- NOTE | 2016-08-31 12:45 | PN ---
Progress Note (short form) - Note Progress Note: PULMONARY Denies shortness of breath or chest pain. No fevers or chills. Awaiting pleur-x placement. Last Vital Signs Temp Pulse Resp BP Pulse Ox 97.7 F 78 18 128/73 96 08/31/16 07:43 08/31/16 09:55 08/31/16 07:54 08/31/16 07:43 08/31/16 09:55 Gen: NAD at rest Heart: RRR Lung: decreased breath sounds at the bases Abd: soft, nontender Ext: no edema CBC, BMP 08/30/16 05:35 08/30/16 05:35 Active Medications Docusate Sodium (Colace -) 300 mg PO HS [facility] Last Admin: 08/30/16 21:52 Dose: 300 mg Pantoprazole Sodium (Protonix -) 40 mg PO DAILY [facility] Last Admin: 08/31/16 09:19 Dose: 40 mg Quinapril HCl (Accupril -) 10 mg PO DAILY [facility] Last Admin: 08/31/16 09:19 Dose: 10 mg Tramadol HCl (Ultram -) 50 mg PO Q6H PRN Last Admin: 08/31/16 09:19 Dose: 50 mg A/P Acute Pulmonary Embolism DVT s/p IVC filter Metastatic Pancreatic 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
--- NOTE | 2016-08-31 21:15 | CONSULT ---
Consult - text type - Consultation Consultation Note: Thoracic Attending Consult (Dr. Aldana and Dr. Denton): Reason for consult: malignant effusion/pneumothorax Pt seen/examined. Briefly, 71M with metastatic pancreatic cancer. Presented with dyspnea and found to have bilateral malignant effusions and RUL PE. Both sides drained and converted to pleur-x. Has bilateral pneumothoraces c/w trapped lung but on physical exam left tube does have a [id number]. Recommend that we monitor drainage with both tubes on suction until Sunday. Water seal Sunday and assess if change in CXR. If no change, would test-clamp left tube and then consider discharge on Sunday. If there is a big drop in lung would consider converting to Heimlich versus putting talc in through pleurx. Pt wishes to leave [place] and return to home eventually. May be safest to do trial with VNS locally if possible. Will d/w SW team, Dr. Bhakta, and medical team. I have spent over 50 minutes with greater than 50% involved in counseling of patient and coordination of care with other physicians and reviewing images, history, and discussing with other medical staff.
--- NOTE | 2016-08-31 21:55 | PN ---
Progress Note, Physician - Current Medication List Current Medications: Active Medications Docusate Sodium (Colace -) 300 mg PO HS [facility] Last Admin: 08/30/16 21:52 Dose: 300 mg Pantoprazole Sodium (Protonix -) 40 mg PO DAILY [facility] Last Admin: 08/31/16 09:19 Dose: 40 mg Quinapril HCl (Accupril -) 10 mg PO DAILY [facility] Last Admin: 08/31/16 09:19 Dose: 10 mg Tramadol HCl (Ultram -) 50 mg PO Q6H PRN Last Admin: 08/31/16 09:19 Dose: 50 mg - Objective Vital Signs: Vital Signs Temperature 98.0 F 08/31/16 17:00 Pulse Rate 101 H 08/31/16 17:00 Respiratory Rate 18 08/31/16 17:00 Blood Pressure 125/80 08/31/16 17:00 O2 Sat by Pulse Oximetry (%) 97 08/31/16 15:40 Labs: CBC, BMP 08/30/16 05:35 08/30/16 05:35 INR, PTT INR 1.08 (0.82-1.09) 08/24/16 07:35 Problem List - Problems (1) Pleural effusion Code(s): J90 - PLEURAL EFFUSION, NOT ELSEWHERE CLASSIFIED (2) Pulmonary embolism Code(s): I26.99 - OTHER PULMONARY EMBOLISM WITHOUT ACUTE COR PULMONALE (3) Acute hypoxemic respiratory failure Code(s): J96.01 - ACUTE RESPIRATORY FAILURE WITH HYPOXIA (4) DVT (deep venous thrombosis) Code(s): I82.409 - ACUTE EMBOLISM AND THOMBOS UNSP DEEP VN UNSP LOWER EXTREMITY (5) Pancreatic cancer Code(s): C25.9 - MALIGNANT NEOPLASM OF PANCREAS, UNSPECIFIED Qualifiers: Pancreatic malignancy location: other parts of pancreas Qualified Code(s): C25.7 - Malignant neoplasm of other parts of pancreas (6) HTN (hypertension) Code(s): I10 - ESSENTIAL (PRIMARY) HYPERTENSION
[2016-08-31] MEDS: DOCUSATE SODIUM 100 MG CAPSULE (FP) PO SCH (22:23)
[2016-09-01] MEDS ORDERED: PT OWN MED DRAWER 7, Y5N ONE (08:52)
[2016-09-01] MEDS: QUINAPRIL HCL 10 MG TABLET (FP) PO SCH (09:12)
[2016-09-01] MEDS: PANTOPRAZOLE 40 MG TABLET (FP) PO SCH (09:13)
[2016-09-01] MEDS: traMADol HCL 50 MG TABLET PO PRN ×2 (09:13→19:59)
--- NOTE | 2016-09-01 11:09 | PN ---
Progress Note, Physician History of Present Illness: PULMONARY ALERT,NO DISTRESS,-CP,-SOB - Current Medication List Current Medications: Active Medications Docusate Sodium (Colace -) 300 mg PO HS [facility] Last Admin: 08/31/16 22:23 Dose: 300 mg Pantoprazole Sodium (Protonix -) 40 mg PO DAILY [facility] Last Admin: 09/01/16 09:13 Dose: 40 mg Quinapril HCl (Accupril -) 10 mg PO DAILY [facility] Last Admin: 09/01/16 09:12 Dose: 10 mg Tramadol HCl (Ultram -) 50 mg PO Q6H PRN Last Admin: 09/01/16 09:13 Dose: 50 mg - Objective Vital Signs: Vital Signs Temperature 98.6 F 09/01/16 07:07 Pulse Rate 87 09/01/16 07:07 Respiratory Rate 20 09/01/16 07:07 Blood Pressure 119/80 09/01/16 07:07 O2 Sat by Pulse Oximetry (%) 99 08/31/16 21:00 Constitutional: Yes: Well Nourished, Calm Eyes: Yes: WNL HENT: Yes: WNL Neck: Yes: WNL Cardiovascular: Yes: Regular Rate and Rhythm, S1, S2 Respiratory: Yes: Diminished Gastrointestinal: Yes: Normal Bowel Sounds, Soft Extremities: Yes: WNL Edema: No Labs: CBC, BMP 08/30/16 05:35 08/30/16 05:35 INR, PTT INR 1.08 (0.82-1.09) 08/24/16 07:35 Problem List - Problems (1) Pancreatic cancer Code(s): C25.9 - MALIGNANT NEOPLASM OF PANCREAS, UNSPECIFIED Qualifiers: Pancreatic malignancy location: other parts of pancreas Qualified Code(s): C25.7 - Malignant neoplasm of other parts of pancreas (2) Pleural effusion Code(s): J90 - PLEURAL EFFUSION, NOT ELSEWHERE CLASSIFIED (3) Pulmonary embolism Code(s): I26.99 - OTHER PULMONARY EMBOLISM WITHOUT ACUTE COR PULMONALE (4) Acute hypoxemic respiratory failure Code(s): J96.01 - ACUTE RESPIRATORY FAILURE WITH HYPOXIA Assessment/Plan IMP Acute Right PE ,Bilateral DVTs S/P IVC Filter Metastatic pancreatic adenocarcinoma with lung and pleural mets Malignant pleural effusion Ptx PLAN: Lovenox equipment operator intermodal yard O2 f/u chest x-ray today chest tube to suction DR MACK Problem List - Problems (1) Pancreatic cancer Code(s): C25.9 - MALIGNANT NEOPLASM OF PANCREAS, UNSPECIFIED (2) Pleural effusion Code(s): J90 - PLEURAL EFFUSION, NOT ELSEWHERE CLASSIFIED (3) Pulmonary embolism Code(s): I26.99 - OTHER PULMONARY EMBOLISM WITHOUT ACUTE COR PULMONALE (4) Acute hypoxemic respiratory failure Code(s): J96.01 - ACUTE RESPIRATORY FAILURE WITH HYPOXIA
[2016-09-01] MEDS: ENOXAPARIN NA (PORCINE) 80 MG/0.8 ML DISP.SYRIN SQ SCH ×2 (12:13→23:12)
[2016-09-01] MEDS: DOCUSATE SODIUM 100 MG CAPSULE (FP) PO SCH (21:43)
--- NOTE | 2016-09-01 21:57 | PN ---
Progress Note, Physician - Current Medication List Current Medications: Active Medications Docusate Sodium (Colace -) 300 mg PO HS [facility] Last Admin: 09/01/16 21:43 Dose: 300 mg Enoxaparin Sodium (Lovenox -) 80 mg SQ BID [facility] Last Admin: 09/01/16 12:13 Dose: 80 mg Pantoprazole Sodium (Protonix -) 40 mg PO DAILY [facility] Last Admin: 09/01/16 09:13 Dose: 40 mg Quinapril HCl (Accupril -) 10 mg PO DAILY [facility] Last Admin: 09/01/16 09:12 Dose: 10 mg Tramadol HCl (Ultram -) 50 mg PO Q6H PRN Last Admin: 09/01/16 19:59 Dose: 50 mg - Objective Vital Signs: Vital Signs Temperature 98.0 F 09/01/16 18:00 Pulse Rate 98 H 09/01/16 18:00 Respiratory Rate 20 09/01/16 18:00 Blood Pressure 127/77 09/01/16 18:00 O2 Sat by Pulse Oximetry (%) 99 08/31/16 21:00 Labs: CBC, BMP 08/30/16 05:35 08/30/16 05:35 INR, PTT INR 1.08 (0.82-1.09) 08/24/16 07:35 Problem List - Problems (1) Pleural effusion Code(s): J90 - PLEURAL EFFUSION, NOT ELSEWHERE CLASSIFIED (2) Pulmonary embolism Code(s): I26.99 - OTHER PULMONARY EMBOLISM WITHOUT ACUTE COR PULMONALE (3) Acute hypoxemic respiratory failure Code(s): J96.01 - ACUTE RESPIRATORY FAILURE WITH HYPOXIA (4) DVT (deep venous thrombosis) Code(s): I82.409 - ACUTE EMBOLISM AND THOMBOS UNSP DEEP VN UNSP LOWER EXTREMITY (5) Pancreatic cancer Code(s): C25.9 - MALIGNANT NEOPLASM OF PANCREAS, UNSPECIFIED Qualifiers: Pancreatic malignancy location: other parts of pancreas Qualified Code(s): C25.7 - Malignant neoplasm of other parts of pancreas (6) HTN (hypertension) Code(s): I10 - ESSENTIAL (PRIMARY) HYPERTENSION
[2016-09-02] MEDS ORDERED: PT OWN MED DRAWER 7, Y5N ONE (10:46)
[2016-09-02] MEDS: ENOXAPARIN NA (PORCINE) 80 MG/0.8 ML DISP.SYRIN SQ SCH ×2 (10:50→21:17)
[2016-09-02] MEDS: QUINAPRIL HCL 10 MG TABLET (FP) PO SCH (10:50)
[2016-09-02] MEDS: PANTOPRAZOLE 40 MG TABLET (FP) PO SCH (10:50)
[2016-09-02] MEDS: traMADol HCL 50 MG TABLET PO PRN ×2 (10:50→17:00)
--- NOTE | 2016-09-02 13:20 | PN ---
Progress Note (short form) - Note Progress Note: OOB to chair. Breathing feels OK. Still with significant CT outputs. Intake & Output 08/30/16 08/31/16 09/01/16 09/02/16 23:59 23:59 23:59 23:59 Intake Total 480 1220 320 0 Output Total 1380 2535 1605 500 Balance -900 -1315 -1285 -500 Last Vital Signs Temp Pulse Resp BP Pulse Ox 98.1 F 112 H 18 136/94 95 09/02/16 10:00 09/02/16 10:00 09/02/16 10:00 09/02/16 10:00 09/02/16 09:00 Active Medications Docusate Sodium (Colace -) 300 mg PO HS [facility] Last Admin: 09/01/16 21:43 Dose: 300 mg Enoxaparin Sodium (Lovenox -) 80 mg SQ BID [facility] Last Admin: 09/02/16 10:50 Dose: 80 mg Pantoprazole Sodium (Protonix -) 40 mg PO DAILY [facility] Last Admin: 09/02/16 10:50 Dose: 40 mg Quinapril HCl (Accupril -) 10 mg PO DAILY [facility] Last Admin: 09/02/16 10:50 Dose: 10 mg Tramadol HCl (Ultram -) 50 mg PO Q6H PRN Last Admin: 09/02/16 10:50 Dose: 50 mg Constitutional: Yes: NAD Eyes: Yes: WNL HENT: Yes: WNL Neck: Yes: WNL Cardiovascular: Yes: Regular Rate and Rhythm, S1, S2 Respiratory: Yes: Diminished, drainage catheters intact Gastrointestinal: Yes: Normal Bowel Sounds, Soft Extremities: Yes: WNL Edema: No Labs: Problem List - Problems (1) Pancreatic cancer Code(s): C25.9 - MALIGNANT NEOPLASM OF PANCREAS, UNSPECIFIED Qualifiers: Pancreatic malignancy location: other parts of pancreas Qualified Code(s): C25.7 - Malignant neoplasm of other parts of pancreas (2) Pleural effusion Code(s): J90 - PLEURAL EFFUSION, NOT ELSEWHERE CLASSIFIED (3) Pulmonary embolism Code(s): I26.99 - OTHER PULMONARY EMBOLISM WITHOUT ACUTE COR PULMONALE (4) Acute hypoxemic respiratory failure Code(s): J96.01 - ACUTE RESPIRATORY FAILURE WITH HYPOXIA Assessment/Plan IMP Acute Right PE ,Bilateral DVTs S/P IVC Filter Metastatic pancreatic adenocarcinoma with lung and pleural mets Malignant pleural effusion PTX PLAN: Lovenox oil changer O2 as needed Maintain on suction Plan is to teach family PeureX drainage as patient will be taking the train back home to [place] Dr Luis
[2016-09-02] MEDS: DOCUSATE SODIUM 100 MG CAPSULE (FP) PO SCH (21:16)
--- NOTE | 2016-09-02 23:13 | PN ---
Progress Note, Physician - Current Medication List Current Medications: Active Medications Docusate Sodium (Colace -) 300 mg PO HS [facility] Last Admin: 09/02/16 21:16 Dose: 300 mg Enoxaparin Sodium (Lovenox -) 80 mg SQ BID [facility] Last Admin: 09/02/16 21:17 Dose: 80 mg Pantoprazole Sodium (Protonix -) 40 mg PO DAILY [facility] Last Admin: 09/02/16 10:50 Dose: 40 mg Quinapril HCl (Accupril -) 10 mg PO DAILY [facility] Last Admin: 09/02/16 10:50 Dose: 10 mg Tramadol HCl (Ultram -) 50 mg PO Q6H PRN Last Admin: 09/02/16 17:00 Dose: 50 mg - Objective Vital Signs: Vital Signs Temperature 98 F 09/02/16 22:00 Pulse Rate 99 H 09/02/16 22:00 Respiratory Rate 20 09/02/16 22:00 Blood Pressure 138/71 09/02/16 22:00 O2 Sat by Pulse Oximetry (%) 97 09/02/16 21:00 Labs: CBC, BMP 08/30/16 05:35 08/30/16 05:35 INR, PTT INR 1.08 (0.82-1.09) 08/24/16 07:35 Problem List - Problems (1) Pleural effusion Code(s): J90 - PLEURAL EFFUSION, NOT ELSEWHERE CLASSIFIED (2) Pulmonary embolism Code(s): I26.99 - OTHER PULMONARY EMBOLISM WITHOUT ACUTE COR PULMONALE (3) Acute hypoxemic respiratory failure Code(s): J96.01 - ACUTE RESPIRATORY FAILURE WITH HYPOXIA (4) DVT (deep venous thrombosis) Code(s): I82.409 - ACUTE EMBOLISM AND THOMBOS UNSP DEEP VN UNSP LOWER EXTREMITY (5) Pancreatic cancer Code(s): C25.9 - MALIGNANT NEOPLASM OF PANCREAS, UNSPECIFIED Qualifiers: Pancreatic malignancy location: other parts of pancreas Qualified Code(s): C25.7 - Malignant neoplasm of other parts of pancreas (6) HTN (hypertension) Code(s): I10 - ESSENTIAL (PRIMARY) HYPERTENSION
[2016-09-03] MEDS: traMADol HCL 50 MG TABLET PO PRN ×4 (01:37→22:13)
[2016-09-03] MEDS ORDERED: PT OWN MED DRAWER 7, Y5N ONE (09:32)
[2016-09-03] MEDS: ENOXAPARIN NA (PORCINE) 80 MG/0.8 ML DISP.SYRIN SQ SCH ×2 (10:01→22:12)
[2016-09-03] MEDS: QUINAPRIL HCL 10 MG TABLET (FP) PO SCH (10:01)
[2016-09-03] MEDS: PANTOPRAZOLE 40 MG TABLET (FP) PO SCH (10:01)
--- NOTE | 2016-09-03 12:33 | PN ---
Progress Note (short form) - Note Progress Note: OOB to chair. Breathing feels OK. Still with significant CT outputs, but improving. Intake & Output 08/31/16 09/01/16 09/02/16 09/03/16 23:59 23:59 23:59 23:59 Intake Total 1220 320 360 0 Output Total 2535 1605 1660 255 Balance -1315 -1285 -1300 -255 Last Vital Signs Temp Pulse Resp BP Pulse Ox 98 F 102 H 18 128/82 98 09/03/16 10:00 09/03/16 10:00 09/03/16 10:00 09/03/16 10:00 09/03/16 09:00 Active Medications Docusate Sodium (Colace -) 300 mg PO HS [facility] Last Admin: 09/02/16 21:16 Dose: 300 mg Enoxaparin Sodium (Lovenox -) 80 mg SQ BID [facility] Last Admin: 09/03/16 10:01 Dose: 80 mg Pantoprazole Sodium (Protonix -) 40 mg PO DAILY [facility] Last Admin: 09/03/16 10:01 Dose: 40 mg Quinapril HCl (Accupril -) 10 mg PO DAILY [facility] Last Admin: 09/03/16 10:01 Dose: 10 mg Constitutional: Yes: NAD Eyes: Yes: WNL HENT: Yes: WNL Neck: Yes: WNL Cardiovascular: Yes: Regular Rate and Rhythm, S1, S2 Respiratory: Yes: Diminished, drainage catheters intact Gastrointestinal: Yes: Normal Bowel Sounds, Soft Extremities: Yes: WNL Edema: No Labs: Problem List - Problems (1) Pancreatic cancer Code(s): C25.9 - MALIGNANT NEOPLASM OF PANCREAS, UNSPECIFIED Qualifiers: Pancreatic malignancy location: other parts of pancreas Qualified Code(s): C25.7 - Malignant neoplasm of other parts of pancreas (2) Pleural effusion Code(s): J90 - PLEURAL EFFUSION, NOT ELSEWHERE CLASSIFIED (3) Pulmonary embolism Code(s): I26.99 - OTHER PULMONARY EMBOLISM WITHOUT ACUTE COR PULMONALE (4) Acute hypoxemic respiratory failure Code(s): J96.01 - ACUTE RESPIRATORY FAILURE WITH HYPOXIA Assessment/Plan IMP Acute Right PE ,Bilateral DVTs S/P IVC Filter Metastatic pancreatic adenocarcinoma with lung and pleural mets Malignant pleural effusion PTX PLAN: Lovenox fdc O2 as needed Maintain on suction Plan is to teach family PeureX drainage as patient will be taking the train back home to [place]. Anticipate that he will need drainage everyday on his trip as it will take 3 days to get back home. Dr Luis
--- NOTE | 2016-09-03 22:02 | PN ---
Progress Note, Physician - Current Medication List Current Medications: Active Medications Docusate Sodium (Colace -) 300 mg PO HS [facility] Last Admin: 09/02/16 21:16 Dose: 300 mg Enoxaparin Sodium (Lovenox -) 80 mg SQ BID [facility] Last Admin: 09/03/16 10:01 Dose: 80 mg Pantoprazole Sodium (Protonix -) 40 mg PO DAILY [facility] Last Admin: 09/03/16 10:01 Dose: 40 mg Quinapril HCl (Accupril -) 10 mg PO DAILY [facility] Last Admin: 09/03/16 10:01 Dose: 10 mg Tramadol HCl (Ultram -) 50 mg PO Q6H PRN Last Admin: 09/03/16 14:37 Dose: 50 mg - Objective Vital Signs: Vital Signs Temperature 98.0 F 09/03/16 17:00 Pulse Rate 93 H 09/03/16 17:00 Respiratory Rate 18 09/03/16 17:00 Blood Pressure 133/72 09/03/16 17:00 O2 Sat by Pulse Oximetry (%) 98 09/03/16 09:00 Labs: CBC, BMP 08/30/16 05:35 08/30/16 05:35 INR, PTT INR 1.08 (0.82-1.09) 08/24/16 07:35 Problem List - Problems (1) Pleural effusion Code(s): J90 - PLEURAL EFFUSION, NOT ELSEWHERE CLASSIFIED (2) Pulmonary embolism Code(s): I26.99 - OTHER PULMONARY EMBOLISM WITHOUT ACUTE COR PULMONALE (3) Acute hypoxemic respiratory failure Code(s): J96.01 - ACUTE RESPIRATORY FAILURE WITH HYPOXIA (4) DVT (deep venous thrombosis) Code(s): I82.409 - ACUTE EMBOLISM AND THOMBOS UNSP DEEP VN UNSP LOWER EXTREMITY (5) Pancreatic cancer Code(s): C25.9 - MALIGNANT NEOPLASM OF PANCREAS, UNSPECIFIED Qualifiers: Pancreatic malignancy location: other parts of pancreas Qualified Code(s): C25.7 - Malignant neoplasm of other parts of pancreas (6) HTN (hypertension) Code(s): I10 - ESSENTIAL (PRIMARY) HYPERTENSION
[2016-09-03] MEDS: DOCUSATE SODIUM 100 MG CAPSULE (FP) PO SCH (22:13)
[2016-09-04 07:10] LABS: BASOPHIL 0.4 % (0-2.0); EOSINOPHIL 6.4 % (0-4.5); MCHC 33.2 g/dl (32.0-35.9); MEAN CELL VOLUME 90.1 fl (80-96); MEAN PLT VOLUME 7.2 fl (7.5-11.1); NEUTROPHILS 79.9 % (42.8-82.8); PLATELET COUNT 301 K/MM3 (134-434); RDW 14.7 % (11.9-15.9); WHITE BLOOD COUNT 12.7 K/mm3 (4.0-10.0)
[2016-09-04 08:00] LABS: ALBUMIN 2.2 g/dl (3.4-5.0); ALK PHOS 87 U/L (45-117); ANION GAP 10 (8-16); BILIRUBIN,TOTAL 0.4 mg/dL (0.2-1.0); CALCIUM 8.5 mg/dL (8.5-10.1); CO2 26 mmol/L (21-32); CREATININE 0.7 mg/dL (0.7-1.3); GLUCOSE,RANDOM 115 mg/dL (74-106); SGOT/AST 24 U/L (15-37); SGPT/ALT 38 U/L (12-78); TOT PROT 5.8 g/dl (6.4-8.2)
--- NOTE | 2016-09-04 10:54 | PN ---
Progress Note, Physician History of Present Illness: PULMONARY ALERT,NO DISTRESS,-[place] - Current Medication List Current Medications: Active Medications Docusate Sodium (Colace -) 300 mg PO HS [facility] Last Admin: 09/03/16 22:13 Dose: 300 mg Enoxaparin Sodium (Lovenox -) 80 mg SQ BID [facility] Last Admin: 09/03/16 22:12 Dose: 80 mg Pantoprazole Sodium (Protonix -) 40 mg PO DAILY [facility] Last Admin: 09/03/16 10:01 Dose: 40 mg Quinapril HCl (Accupril -) 10 mg PO DAILY [facility] Last Admin: 09/03/16 10:01 Dose: 10 mg Tramadol HCl (Ultram -) 50 mg PO Q6H PRN Last Admin: 09/03/16 22:13 Dose: 50 mg - Objective Vital Signs: Vital Signs Temperature 98.0 F 09/04/16 05:44 Pulse Rate 85 09/04/16 05:44 Respiratory Rate 20 09/04/16 05:44 Blood Pressure 138/76 09/04/16 05:44 O2 Sat by Pulse Oximetry (%) 99 09/03/16 21:00 Constitutional: Yes: Well Nourished, Calm Eyes: Yes: WNL HENT: Yes: WNL Neck: Yes: WNL Cardiovascular: Yes: Regular Rate and Rhythm, S1, S2 Respiratory: Yes: Rales (FEW CRACKLES R BASE) Gastrointestinal: Yes: Normal Bowel Sounds, Soft Extremities: Yes: WNL Edema: No Labs: CBC, BMP 09/04/16 05:35 09/04/16 05:35 INR, PTT INR 1.08 (0.82-1.09) 08/24/16 07:35 - ....Imaging Chest X-ray: Report Reviewed, Image Reviewed Problem List - Problems (1) Pancreatic cancer Code(s): C25.9 - MALIGNANT NEOPLASM OF PANCREAS, UNSPECIFIED Qualifiers: Pancreatic malignancy location: other parts of pancreas Qualified Code(s): C25.7 - Malignant neoplasm of other parts of pancreas (2) Pleural effusion Code(s): J90 - PLEURAL EFFUSION, NOT ELSEWHERE CLASSIFIED (3) Pulmonary embolism Code(s): I26.99 - OTHER PULMONARY EMBOLISM WITHOUT ACUTE COR PULMONALE (4) Acute hypoxemic respiratory failure Code(s): J96.01 - ACUTE RESPIRATORY FAILURE WITH HYPOXIA Assessment/Plan IMP Acute Right PE ,Bilateral DVTs S/P IVC Filter Metastatic pancreatic adenocarcinoma with lung and pleural mets Malignant pleural effusion Ptx PLAN: Lovenox longterm O2 Pleur-x drainage DR MACK Problem List - Problems (1) Pancreatic cancer Code(s): C25.9 - MALIGNANT NEOPLASM OF PANCREAS, UNSPECIFIED (2) Pleural effusion Code(s): J90 - PLEURAL EFFUSION, NOT ELSEWHERE CLASSIFIED (3) Pulmonary embolism Code(s): I26.99 - OTHER PULMONARY EMBOLISM WITHOUT ACUTE COR PULMONALE (4) Acute hypoxemic respiratory failure Code(s): J96.01 - ACUTE RESPIRATORY FAILURE WITH HYPOXIA
[2016-09-04] MEDS: PANTOPRAZOLE 40 MG TABLET (FP) PO SCH (11:09)
[2016-09-04] MEDS: QUINAPRIL HCL 10 MG TABLET (FP) PO SCH (11:09)
[2016-09-04] MEDS: ENOXAPARIN NA (PORCINE) 80 MG/0.8 ML DISP.SYRIN SQ SCH ×2 (11:09→21:55)
[2016-09-04] MEDS: traMADol HCL 50 MG TABLET PO PRN ×2 (11:10→20:40)
[2016-09-04] MEDS: DOCUSATE SODIUM 100 MG CAPSULE (FP) PO SCH (21:54)
--- NOTE | 2016-09-04 23:56 | PN ---
Progress Note, Physician History of Present Illness: No new changes - Current Medication List Current Medications: Active Medications Docusate Sodium (Colace -) 300 mg PO HS [facility] Last Admin: 09/04/16 21:54 Dose: 300 mg Enoxaparin Sodium (Lovenox -) 80 mg SQ BID [facility] Last Admin: 09/04/16 21:55 Dose: 80 mg Pantoprazole Sodium (Protonix -) 40 mg PO DAILY [facility] Last Admin: 09/04/16 11:09 Dose: 40 mg Quinapril HCl (Accupril -) 10 mg PO DAILY [facility] Last Admin: 09/04/16 11:09 Dose: 10 mg Tramadol HCl (Ultram -) 50 mg PO Q6H PRN Last Admin: 09/04/16 20:40 Dose: 50 mg - Objective Vital Signs: Vital Signs Temperature 98.1 F 09/04/16 20:50 Pulse Rate 95 H 09/04/16 20:50 Respiratory Rate 20 09/04/16 21:00 Blood Pressure 127/73 09/04/16 20:50 O2 Sat by Pulse Oximetry (%) 98 09/04/16 21:00 Constitutional: Yes: No Distress Eyes: Yes: WNL HENT: Yes: WNL Neck: Yes: WNL, Supple Cardiovascular: Yes: WNL, Regular Rate and Rhythm Respiratory: Yes: Diminished Gastrointestinal: Yes: WNL, Normal Bowel Sounds, Soft Labs: CBC, BMP 09/04/16 05:35 09/04/16 05:35 INR, PTT INR 1.08 (0.82-1.09) 08/24/16 07:35 Problem List - Problems (1) Pleural effusion Assessment/Plan: S/P rt chest tube placement Pleur-x Malignant effusion Code(s): J90 - PLEURAL EFFUSION, NOT ELSEWHERE CLASSIFIED (2) Pulmonary embolism Assessment/Plan: Cont lovenox Code(s): I26.99 - OTHER PULMONARY EMBOLISM WITHOUT ACUTE COR PULMONALE (3) Acute hypoxemic respiratory failure Code(s): J96.01 - ACUTE RESPIRATORY FAILURE WITH HYPOXIA (4) DVT (deep venous thrombosis) Assessment/Plan: S/P IVC filter Code(s): I82.409 - ACUTE EMBOLISM AND THOMBOS UNSP DEEP VN UNSP LOWER EXTREMITY (5) Pancreatic cancer Code(s): C25.9 - MALIGNANT NEOPLASM OF PANCREAS, UNSPECIFIED Qualifiers: Pancreatic malignancy location: other parts of pancreas Qualified Code(s): C25.7 - Malignant neoplasm of other parts of pancreas (6) HTN (hypertension) Code(s): I10 - ESSENTIAL (PRIMARY) HYPERTENSION
[2016-09-05] MEDS: traMADol HCL 50 MG TABLET PO PRN (02:23)
[2016-09-05] MEDS ORDERED: PT OWN MED DRAWER 7, Y5N ONE (09:42)
[2016-09-05] MEDS: QUINAPRIL HCL 10 MG TABLET (FP) PO SCH (09:47)
[2016-09-05] MEDS: PANTOPRAZOLE 40 MG TABLET (FP) PO SCH (09:47)
[2016-09-05 10:45] VITALS: BP 146/89; TEMP 98
--- NOTE | 2016-09-05 11:05 | PN ---
Progress Note, Physician History of Present Illness: pulmonary alert,oob-chair,comfortable,-resp distress - Current Medication List Current Medications: Active Medications Docusate Sodium (Colace -) 300 mg PO HS [facility] Last Admin: 09/04/16 21:54 Dose: 300 mg Enoxaparin Sodium (Lovenox -) 80 mg SQ BID [facility] Last Admin: 09/04/16 21:55 Dose: 80 mg Pantoprazole Sodium (Protonix -) 40 mg PO DAILY [facility] Last Admin: 09/05/16 09:47 Dose: 40 mg Quinapril HCl (Accupril -) 10 mg PO DAILY [facility] Last Admin: 09/05/16 09:47 Dose: 10 mg Tramadol HCl (Ultram -) 50 mg PO Q6H PRN Last Admin: 09/05/16 02:23 Dose: 50 mg - Objective Vital Signs: Vital Signs Temperature 98.0 F 09/05/16 10:00 Pulse Rate 100 H 09/05/16 10:00 Respiratory Rate 20 09/05/16 10:00 Blood Pressure 146/89 09/05/16 10:00 O2 Sat by Pulse Oximetry (%) 98 09/05/16 09:00 Constitutional: Yes: Well Nourished, Calm Eyes: Yes: WNL HENT: Yes: WNL Neck: Yes: WNL Cardiovascular: Yes: Regular Rate and Rhythm, S1, S2 Respiratory: Yes: Rales (few basilar crackles) Gastrointestinal: Yes: Normal Bowel Sounds, Soft Extremities: Yes: WNL Edema: No Labs: CBC, BMP Problem List - Problems (1) Pancreatic cancer Code(s): C25.9 - MALIGNANT NEOPLASM OF PANCREAS, UNSPECIFIED Qualifiers: Pancreatic malignancy location: other parts of pancreas Qualified Code(s): C25.7 - Malignant neoplasm of other parts of pancreas (2) Pleural effusion Code(s): J90 - PLEURAL EFFUSION, NOT ELSEWHERE CLASSIFIED (3) Pulmonary embolism Code(s): I26.99 - OTHER PULMONARY EMBOLISM WITHOUT ACUTE COR PULMONALE (4) Acute hypoxemic respiratory failure Code(s): J96.01 - ACUTE RESPIRATORY FAILURE WITH HYPOXIA Assessment/Plan IMP Acute Right PE ,Bilateral DVTs S/P IVC Filter Metastatic pancreatic adenocarcinoma with lung and pleural mets Malignant pleural effusion Ptx PLAN: Lovenox half-way O2 Pleur-x drainage DR MACK Problem List - Problems (1) Pancreatic cancer Code(s): C25.9 - MALIGNANT NEOPLASM OF PANCREAS, UNSPECIFIED (2) Pleural effusion Code(s): J90 - PLEURAL EFFUSION, NOT ELSEWHERE CLASSIFIED (3) Pulmonary embolism Code(s): I26.99 - OTHER PULMONARY EMBOLISM WITHOUT ACUTE COR PULMONALE (4) Acute hypoxemic respiratory failure Code(s): J96.01 - ACUTE RESPIRATORY FAILURE WITH HYPOXIA
[2016-09-05 11:13] VITALS: PULSE 105
[2016-09-05] MEDS: ENOXAPARIN NA (PORCINE) 80 MG/0.8 ML DISP.SYRIN SQ SCH (11:13)
== END 2016-09-05 14:18 | disposition home or self-care (01) | DRG 423 ==
LOC: FER 06:36 → J4W 12:44
PROVIDERS: ADMIT Internal Medicine; ATTEND Internal Medicine
PROC: 3E033GC Introduction of Other Therapeutic Substance into Peripheral Vein, Percutaneous Approach (ICD-10-PCS; 2016-08-24)
PROC: 06H03DZ Insertion of Intraluminal Device into Inferior Vena Cava, Percutaneous Approach (ICD-10-PCS; 2016-08-25)
PROC: 0W9930Z Drainage of Right Pleural Cavity with Drainage Device, Percutaneous Approach (ICD-10-PCS; 2016-08-25)
PROC: 0B9P30Z Drainage of Left Pleura with Drainage Device, Percutaneous Approach (ICD-10-PCS; principal; 2016-08-28)
DX: C25.9 Malignant neoplasm of pancreas, unspecified (principal); I26.99 Other pulmonary embolism without acute cor pulmonale; J96.01 Acute respiratory failure with hypoxia; C78.00 Secondary malignant neoplasm of unspecified lung; J91.0 Malignant pleural effusion; J98.11 Atelectasis; I82.433 Acute embolism and thrombosis of popliteal vein, bilateral; I82.412 Acute embolism and thrombosis of left femoral vein; I82.442 Acute embolism and thrombosis of left tibial vein; C78.2 Secondary malignant neoplasm of pleura; J93.9 Pneumothorax, unspecified; I10 Essential (primary) hypertension; E78.5 Hyperlipidemia, unspecified
CPT/HCPCS: 32550; 32557; 36415; 37191; 71010-TC; 71020-TC; 71275-TC; 76098-TC; 76942-TC; 80053; 82550; 82945; 83615; 84157; 84484; 85025; 85027; 85610; 85730; 87070; 87075; 87102; 87116; 87205; 87206; 87210; 87899; 88108; 88305-TC; 89051; 93005; 93010; 93306-TC; 93970-TC; 94640; 94761; 99284-25; C1729; C1769; C1880; C1894; J1644